=== PATIENT | male | born 1965 | race Caucasian/White ===

== ENCOUNTER 2020-08-31 15:42 | Outpatient (REF) | payer OTHER, SELFPAY | END 2020-08-31 15:43 | disposition home or self-care (01) | LOC: HO.LAB 15:42 | PROVIDERS: Visit Provider Internal Medicine | DX: Z20.828 Contact with and (suspected) exposure to other viral communicable diseases (principal) | CPT/HCPCS: C9803; U0003 ==

== ENCOUNTER 2020-10-15 09:09 | Outpatient (REF) | payer OTHER, SELFPAY | END 2020-10-15 09:10 | disposition home or self-care (01) | LOC: HO.LAB 09:09 | PROVIDERS: Visit Provider Internal Medicine | DX: Z20.822 Contact with and (suspected) exposure to COVID-19 (principal) | CPT/HCPCS: 36415; C9803; U0003 ==

== ENCOUNTER 2020-10-22 09:31 | Outpatient (REF) | payer OTHER, SELFPAY | END 2020-10-22 09:32 | disposition home or self-care (01) | LOC: HO.LAB 09:31 | PROVIDERS: Visit Provider Internal Medicine | DX: Z20.822 Contact with and (suspected) exposure to COVID-19 (principal) | CPT/HCPCS: 36415; C9803; U0003 ==

== ENCOUNTER 2020-11-29 07:41 | Outpatient (REF) | payer OTHER, SELFPAY | END 2020-11-29 07:42 | disposition home or self-care (01) | LOC: HO.LAB 07:41 | PROVIDERS: Visit Provider Internal Medicine | DX: Z20.822 Contact with and (suspected) exposure to COVID-19 (principal) | CPT/HCPCS: 36415; C9803; U0003; U0005 ==

== ENCOUNTER 2021-01-09 07:35 | Outpatient (REF) | payer OTHER, SELFPAY ==
[2021-01-09 10:32] LABS: SARS COV2 PCR INHOUSE NEGATIVE (Negative)
== END 2021-01-09 07:36 | disposition home or self-care (01) ==
LOC: HO.LAB 07:35
PROVIDERS: Visit Provider Internal Medicine
DX: Z20.822 Contact with and (suspected) exposure to COVID-19 (principal)
CPT/HCPCS: C9803; U0003

== ENCOUNTER 2021-02-09 07:36 | Outpatient (REF) | payer OTHER, SELFPAY | END 2021-02-09 07:37 | disposition home or self-care (01) | LOC: HO.LAB 07:36 | PROVIDERS: Visit Provider Internal Medicine | DX: Z20.822 Contact with and (suspected) exposure to COVID-19 (principal) | CPT/HCPCS: C9803; U0003; U0005 ==

== ENCOUNTER → 2021-06-02 07:51 | Outpatient (BNVA) | payer OTHER, SELFPAY | PROVIDERS: Visit Provider Physician Assistant | DX: G56.22 Lesion of ulnar nerve, left upper limb (principal); G56.02 Carpal tunnel syndrome, left upper limb | CPT/HCPCS: 99202 ==

== ENCOUNTER 2021-08-23 08:28 | Outpatient (REF) | payer OTHER, SELFPAY ==
--- NOTE | 2021-08-23 08:31 | EMG_ITS ---
This is a 55-year-old man with a 1-year history of bilateral upper extremity pain, numbness, and tingling. He has no other medical problems. PHYSICAL EXAMINATION: On examination, he is alert and oriented with normal intellectual functions. Cranial nerves II through XII are normal. There is no Tinel or Phalen sign. IMPRESSION: Carpal tunnel syndrome. Nerve conduction EMG study: Early carpal tunnel syndrome bilaterally. Normal EMG of the left C5-T1 innervated muscles. MD CHEMA Jensen/JOSEFINA / [id number]
== END 2021-08-23 08:29 | disposition home or self-care (01) ==
LOC: HO.NEURO 08:28
PROVIDERS: Visit Provider Physician Assistant
DX: G56.02 Carpal tunnel syndrome, left upper limb (principal)
CPT/HCPCS: 95885; 95913

== ENCOUNTER 2021-11-21 08:32 | Outpatient (REF) | payer OTHER, SELFPAY ==
--- NOTE | ~2021-11-21 | XR_ITS ---
EXAMINATION: LEFT SHOULDER, LEFT ELBOW CLINICAL INFORMATION: Pain in left shoulder and left elbow COMPARISON: Left shoulder 03/13/2019, left elbow 04/11/2018 TECHNIQUE: 4 views left shoulder, 3 views left elbow FINDINGS: Left shoulder: No significant bone, joint or soft tissue abnormality is seen. Left elbow: No significant bone, joint or soft tissue abnormality is seen. XR/XR elbow LT 2V IMPRESSION: Normal unchanged radiographs of the left shoulder and left elbow
--- NOTE | ~2021-11-21 | XR_ITS ---
EXAMINATION: LEFT SHOULDER, LEFT ELBOW CLINICAL INFORMATION: Pain in left shoulder and left elbow COMPARISON: Left shoulder 03/13/2019, left elbow 04/11/2018 TECHNIQUE: 4 views left shoulder, 3 views left elbow FINDINGS: Left shoulder: No significant bone, joint or soft tissue abnormality is seen. Left elbow: No significant bone, joint or soft tissue abnormality is seen. XR/XR shoulder LT min 2V IMPRESSION: Normal unchanged radiographs of the left shoulder and left elbow
== END 2021-11-21 08:33 | disposition home or self-care (01) ==
LOC: HO.XRAY 08:32
PROVIDERS: Absent Provider Nurse Practitioner Primary Care; PCP Nurse Practitioner Primary Care; Visit Provider Internal Medicine
DX: M77.02 Medial epicondylitis, left elbow (principal); M25.512 Pain in left shoulder
CPT/HCPCS: 73030; 73070

== ENCOUNTER → 2022-07-18 12:15 | Outpatient (BNVA) | payer OTHER, SELFPAY | PROVIDERS: PCP Nurse Practitioner Primary Care; Visit Provider Orthopaedic Surgery | DX: G56.23 Lesion of ulnar nerve, bilateral upper limbs (principal); G56.03 Carpal tunnel syndrome, bilateral upper limbs | CPT/HCPCS: 99202 ==

== ENCOUNTER 2024-09-23 15:25 | Outpatient (REF) | payer OTHER, SELFPAY ==
[2024-09-23 16:29] LABS: Hematocrit 43.2 % (42.0-52.0); Hemoglobin 14.5 g/dl (14.0-18.0)
[2024-09-23 17:30] LABS: Vitamin B12 544 pg/mL (200-900)
[2024-09-23 17:41] LABS: Alanine Aminotransferase 49 U/L (0-40); Albumin Level 4.5 g/dL (3.5-5.0); Alkaline Phosphatase 83 U/L (39-117); Anion Gap 11 (12-20); Aspartate Amino Transferase 29 U/L (5-37); Bilirubin Total 0.4 mg/dL (0.0-1.0); Blood Urea Nitrogen 15 mg/dL (9-16); Carbon Dioxide 28 mmol/L (22-29); Chloride 108 mmol/L (96-108); Cholesterol 234 mg/dL (<200); Estimated Glomerular Filt Rate > 60; Glucose Random 99 mg/dL (60-115); HDL Cholesterol 38 mg/dL (>40); LDL Cholesterol Calculated 133 mg/dL (<100); Potassium 4.1 mmol/L (3.3-5.1); Sodium 143 mmol/L (135-145); Total Protein 7.8 g/dL (6.5-8.0); Triglycerides 315 mg/dL (<150)
[2024-09-24 04:50] LABS: HIV AB/AG Nonreactive (Nonreactive); HIV Num 1 0.06 S/CO (0.00-0.99); ~HepC Num1 0.09 S/CO (0.00-0.79); ~Hepatitis C Antibody Nonreactive (Nonreactive)
[2024-09-25 12:39] LABS: RPR Rapid Plasma Reagin NON-REACTIVE (NON-REACTIVE)
== END 2024-09-23 15:26 | disposition home or self-care (01) ==
LOC: HO.HHCL 15:25
PROVIDERS: Visit Provider Nurse Practitioner Primary Care
DX: Z00.00 Encounter for general adult medical examination without abnormal findings (principal); Z11.3 Encounter for screening for infections with a predominantly sexual mode of transmission; Z11.4 Encounter for screening for human immunodeficiency virus [HIV]; E78.1 Pure hyperglyceridemia; G56.23 Lesion of ulnar nerve, bilateral upper limbs
CPT/HCPCS: 36415; 80053; 80061; 82607; 85014; 85018; 86592; 86803; 87389

== ENCOUNTER 2025-01-05 09:27 | Outpatient (REF) | payer OTHER, SELFPAY ==
--- NOTE | ~2025-01-05 | XR_ITS ---
EXAMINATION: XR SHOULDER 2 OR MORE VIEWS RIGHT HISTORY: M25.519 - Pain in unspecified shoulder COMPARISON: Alexx is made with the prior examination dated 03/13/2019. FINDINGS: Three views of the right shoulder are submitted. Osseous mineralization is normal. There is no fracture or dislocation. The glenohumeral and acromioclavicular joint spaces are preserved. The soft tissues are unremarkable. XR/XR shoulder RT min 2V IMPRESSION: Unremarkable examination of the right shoulder. Electronically signed by: Adonay Watson MD 01/06/2025 08:59 AM EDT
--- NOTE | ~2025-01-05 | XR_ITS ---
CLINICAL HISTORY: M25.519 - Pain in unspecified shoulder 3 view left shoulder Comparison: None Findings: No acute fracture. No dislocation. Mild degenerative changes of the greater tuberosity. Glenohumeral joint and acromioclavicular joint are intact. No erosions. No radiopaque foreign body. IMPRESSION: 1. No acute findings This document has been electronically signed by: Tina Cabral MD on 01/06/2025 17:14:33
--- OUTSIDE RECORDS SUMMARY | 2025-01-05 11:11 | XMS_ITS | Clinical Summary ---
Author Organization [employer] Address [address] [place] [address] Care Team Providers Care Berry Picker Name Role Phone Maryann Montes Primary Care Provider [phone] Allergies No known active allergies Medications atorvastatin [...] Description 11/10/2024 2:00 PM EST Office Visit [facility] [address] [place] [address] Maryann Montes ANP Low back pain radiating [...] Description 02/09/2025 1:15 PM EDT Office Visit [facility] [address] [place], [place] [phone] Maryann Montes, DANISH [address] [place], [place] [phone] Health Maintenance Due Date Last Done Comments [...] PM EST) Hepatitis C Antibody Nonreactive Nonreactive [facility] Comment:Antibodies to HCV no t detected; does not exclude early acuteHCV infection. Blood Venous blood specimen / Unknown 09/23/2024 3:28 PM EST 09/23/2024 4:24 PM EST [facility] LAB BLOOD ORDERABLES Final Resul t [facility] [address] [place] [phone] * HIV-1/2 Antigen and Antibodies, Fourth Generation, with Reflexes (09/23/2024 3:28 PM EST) HIV AB/AG Nonreactive Nonreactive [facility] Comment:HIV-1 p24 Ag and/or HIV-1/HIV-2 Ab not detected.A test result that is nonreactive does not exclude thepossibility of exposure to or infection with HIV-1 and/orHIV-2. Nonreactive results in this assay for individualswith prior exposure to HIV-1 and/or HIV-2 may be due toantigen and antibody levels that are below the limit ofdetection of this assay.The [employer] HIV Ag/Ab Combo assay result andsupplemental assay results should be interpreted inconjunction with the patient's clinical presentation,history and other laboratory results. If the results areinconsistent with clinical evidence, additional testing issuggested to confirm the result. Blood Venous blood specimen / Unknown 09/23/2024 3:28 PM EST 09/23/2024 4:24 PM EST [facility] LAB BLOOD ORDERABLES Final Resul t [facility] [address] [place] [phone] * (ABNORMAL) Lipid Panel, Standard (09/23/2024 3:28 PM EST) Triglycerides 315(H) <150 mg/dL [facility] Comment:Desirable Triglyceri de: less than 150 mg/dLBorderline High Triglyceride 150-199 mg/dLHigh Triglyceride: 200-499 mg/dLVery High Triglyceride: greater than or equal to 5OO mg/dL Cholesterol 234(H) <200 mg/dL [facility] Comment:Desirable Cholestero l: less than 200 mg/dLBorderline High Cholesterol: 200-239 mg/dLHigh Cholesterol: greater than 239 mg/dL LDL Cholesterol Calculated 133(H) <100 mg/dL [facility] Comment:Desirable LDL: less than 100 mg/dLNear Optimal/Above Optimal LDL: 110- 129 mg/dLBorderline High LDL: 130-159 mg/dLHigh LDL: 160-189 mg/dLVery High LDL: greater than or equal to 190 mg/dL HDL Cholesterol 38(L) >40 mg/dL [facility] Comment:Desirable HDL: great er than 40 mg/dL Note: This HDL assay may give artificially low results in patients with liver disease. Blood Venous blood specimen / Unknown 09/23/2024 3:28 PM EST 09/23/2024 4:24 PM EST Maryann PENG LAB BLOOD ORDERABLES Final Resul t [facility] [address] [place] [phone] from Last 3 Months or Most Recently Relevant to Health Maintenance Insurance [facility] [address] [place] [id number] [place] [address] [phone] [place] [id number] Care Teams Berry Picker Relationship Specialty Start Date End Date Maryann Montes ANP [address] [place] [address] PCP - General Family Medicine 08/23/20
--- OUTSIDE RECORDS SUMMARY | 2025-01-05 11:11 | XMS_ITS | Clinical Summary ---
Author Organization [facility] ity Address [address] [place] [address] Care Team Providers Care Combination Machine Tool Operator Name Role Phone Unavailable Primary Care Provider [...]
== END 2025-01-05 09:28 | disposition home or self-care (01) ==
LOC: HO.HOSX 09:27
PROVIDERS: PCP Nurse Practitioner Primary Care; Visit Provider Orthopaedic Surgery
DX: M25.519 Pain in unspecified shoulder (principal)
CPT/HCPCS: 73030

== ENCOUNTER 2025-01-05 09:27 | Outpatient (AMB) | payer OTHER, SELFPAY ==
--- NOTE | 2025-01-05 09:33 | A.OFFVIS_ITS ---
Vital Signs 01/05/25 10:00 Height 5 ft 8 in Weight 192 lb BMI 29.2 Intake Visit Reasons: OV-B/L ulnar neuropathy LT upper extremity f/u Intake Note: Xavier 59 yr old right hand dominant Gabonese speaking male presents today for a new problem visit for his right shoulder pain. States pain started about 7 years ago and has worsen in the last 4-5 years. Pain increases with lifting, pushing and when sleeping. He is not able to hold on to a item for prolong time before he drops it due to weakness. Reports he has tried P.T and injections in the past with no relief. He also has numbness and tingling and was schedule to see Dr Mclaughlin however states his shoulder is worse. Environmental Services Manager Name: Paola Maya [phone] Allergies No Known Allergies [No Known Allergies*] Allergy (Verified 01/05/25 10:03) HPI HPI OV-B/L ulnar neuropathy LT upper extremity f/u: Details: The patient is a 59-year-old right hand dominant male presenting with pain in both shoulders, neck and numbness and tingling in the hands bilaterally. The pain is described as starting with a cramp and feeling warm before onset and radiates through the entire arm on both sides, with the right side being more severe. Additionally, he reports a buzzing sensation or electrical sensation of bilateral upper extremities. Symptoms have persisted for several years, worsening over the last six to seven years. There is associated neck pain that occurs occasionally, impacted by movement, but no history of injury or trauma reported. He experiences reduced comfort in positioning during sleep due to this pain. Current medications include duloxetine and gabapentin, which provide intermittent relief. [facility] Medical History (Updated 01/05/25 @ 11:29 by Osiris Mendieta PA-C) High cholesterol Surgical History H/O left knee surgery Social History Current occupational status: employed Current occupation: maintenance/rt hand Review of Systems Const All systems reviewed & are unremarkable except as noted in HPI and below Physical Exam Vital Signs: BMI result Body Mass Index 29.2 Const General: cooperative, healthy appearing and no acute distress Orientation/consciousness: patient oriented x3 HEENT Head: Yes normocephalic and Yes atraumatic Eyes EOM: EOMs intact bilaterally Resp Effort & Inspection: normal respiratory effort and able to speak in complete sentences Cardio Jugular venous distension: no JVD Skin General skin exam: turgor normal Rashes: no rashes Neuro General: patient oriented x3 Extrem Other: Right/Left shoulder: Full shoulder ROM in all planes with pain. Negative cross- body reach. Negative empty can. Negative drop arm. Reports numbness and tingling in bilateral hands. Reports a buzzing sensation in bilateral upper extremities from shoulders to hand. Reproduction of pain and symptoms when the patient is extending his neck. Increase in neck pain with range of motion. Psych Appearance: grossly normal Affect: normal affect Attitude: cooperative Assessment & Plan Assessment & Plan (1) Cervical radiculopathy: Code(s): M54.12 - Radiculopathy, cervical region Category: Medical Plan I discussed with the patient the possibility of cervical radiculopathy causing his symptoms, which include bilateral shoulder pain, numbness, and tingling in the hands. I explained that a nerve conduction study would be beneficial for a definitive assessment. I emphasized the importance of continuing his current medications, duloxetine and gabapentin, to manage symptoms. The benefits and r isks of different management and diagnostic options were discussed, highlighting that proactive treatment could potentially prevent deterioration and improve symptoms. The patient was agreeable to these steps and did not have additional questions. The patient will follow-up with Dr. Hector for further evaluation and treatment after EMG is obtained. Of note, the patient did have an EMG study in 2020 which she was diagnosed with carpal tunnel syndrome. X-rays of bilateral shoulders which were obtained while in the office today and were reviewed by me, Osiris Mendieta PA-C, revealed no acute fracture dislocation. Scribed for Carline Mclaughlin MD by Gilmer Avitia, medical unit secretary, on 01/05/25 at [ ] AM, EST. Orders: Orders XR shoulder LT min 2V 01/05/25 M25.519 - Pain in unspecified shoulder XR shoulder RT min 2V 01/05/25 M25.519 - Pain in unspecified shoulder NE electromyogram (EMG) 01/05/25 M54.12 - Radiculopathy, cervical region Coding Level of Care Code New Pt Level 3 (12729) Diagnoses Cervical radiculopathy M54.12
[2025-01-05 10:00] VITALS: BMI 29.2
--- OUTSIDE RECORDS SUMMARY | 2025-01-05 10:40 | XMS_ITS | Clinical Summary ---
Author Organization [employer] Address [address] [place] [address] Care Team Providers Care Strategic Planning Manager Name Role Phone Maryann Montes Primary Care Provider [phone] Allergies No known active allergies Medications atorvastatin (Lipitor) 20 MG tabletIndication s:Dyslipidemia Take 1 tablet (20 mg) by mouth Once per day. 90 tablet 3 4 Active DULoxetine (Cymbalta) [address] capsuleIndicatio ns:Ulnar neuropathy of both upper extremities Take 1 capsule twice daily with meal. Do not crush or chew. 180 capsule 1 5 Active lidocaine (Lidoderm) 5 % patchIndications :Low back pain radiating to right leg Apply 1 patch topically Once per day. Remove & discard patch within 12 hours or as directed by MD. 30 patch 2 5 Active Active Problems Problem Noted Date Diagnosed Date Low back pain radiating to right leg 11/10/2024 Ulnar neuropathy of both upper extremities 11/10 Overview (11/10/2024): Tolerating duloxetine well. Increased dose to 30 mg twice daily. Encounters Date Type Department Care Team Description 11/10/2024 2:00 PM EST Office Visit [facility] [address] [place] [address] Maryann Montes ANP Low back pain radiating to right leg (Primary Dx); Ulnar neuropathy of both upper extremities 11/10/2024 Travel from Last 3 Months Immunizations Name Administration Dates Next Due Influenza injectable quadrivalent preservative f ree 09/28/2015 Influenza, seasonal, injectable, preservative fr ee 09/23/2024 Td (adult), 5 Lf tetanus tox oid, preservative free, adsorbed 07/08/2013 Tdap 09/23/2024 Social History Tobacco Use Types Packs/Day Years Used Date Smoking Tobacco: Never Smokeless Tobacco: Never Tobacco Cessation:Counseling Given: Not Answered Depression Answer Date Recorded Patient Health Questionnaire-9 Score 0 09/23/2024 Patient Health Questionnaire-9 Score 0 09/23/2024 Last PHQ-9: Questionnaire Data Not on file 1 11/24/2023 Housing Stability Answer Date Recorded What is your housing situation today? I have kane mojica 09/11/[address] you li ve. Do you have problems with any of the following? None of the above 09/11/2024 Food Insecurity Answer Date Recorded Within the past 12 months, y ou worried that your food would run out before you got money to buy more: Sometimes True 2023 Within the past 12 months,th e food you bought just didn't last and you didn't have enough money to get more: Sometimes True 09/11/2024 Transportation Answer Date Recorded In the past 12 months, has l ack of transportation kept you from medical appts, meetings, work or from getting things needed for daily living? No 09/11/2024 Utilities Answer Date Recorded In the past 12 months, has t he electric, gas, oil or water company threatened to shut off services in your home? No 09/11/2024 Depression Answer Date Recorded Patient Health Questionnaire-2 Score 0 09/23/2024 Internet Access Answer Date Recorded Internet Access Q1 Yes 09/11/2024 Internet Access Q2 Not on file 09/11/2024 Sex and Gender Information Value Date Recorded Sex Assigned at Male 08/06/2022 10:16 AM EDT Legal Sex Male 10:16 AM EDT Gender Identity Male 08/06/2022 10:16 AM EDT Sexual Orientation Choose not to disclose 2021 10:16 AM EDT Last Filed Vital Signs Vital Sign Reading Time Taken Comments Blood Pressure 128/87 11/10/2024 2:25 PM EST Pulse 79 11/10/2024 2:25 PM EST Temperature 36.8 ??C (98.2 ??F) 11/10/2024 2:25 PM ES T Respiratory Rate 14 11/10/2024 2:25 PM EST Oxygen Saturation 98% 11/10/2024 2:25 PM EST Inhaled Oxygen Concentration - - Weight 88.2 kg (194 lb 6.4 oz) 11/10/2024 2:25 P M EST Height 172.7 cm (5' 8 ) 04/30/2022 12:07 AM EDT Body Mass Index 29.56 04/30/2022 12:07 AM EDT Plan of Treatment Upcoming Encounters Date Type Department Care Team (Late st Contact Info) Description 02/09/2025 1:15 PM EDT Office Visit [facility] [address], [place] [phone] Maryann Montes, DANISH [address] [place], [place] [phone] Health Maintenance Due Date Last Done Comments CT Colonography 1967 Colonoscopy 1967 Colorectal Cancer Screening 1967 FIT DNA/Cologuard 1967 FIT 1967 FOBT 1967 Sigmoidoscopy 1967 Alcohol/Substance Use Screening 1979 Hepatitis B Vaccines (1 of 3 - 19+ 3-dose series) 1986 Pneumococcal Vaccine: 50+ Years (1 of 1 - PCV) 2017 Zoster Vaccines (1 of 2) 2017 COVID-19 Vaccine (3 - 2023-2 5 season) 2024 11/21/2021, 01/14/2021 SDOH Screening 09/11/2025 09/11/2024 Depression Screening 09/23/2025 09/23/2024, 09/23/2024 Tobacco Screening 11/10/2025 11/10/2024 Lipid Panel 09/23/2029 09/23/2024, 04/17/2021 DTaP/Tdap/Td Vaccines (2 - T d or Tdap) 09/23/2034 09/23/2024, 07/08/2013 RSV Patients and Patients Aged 60 years or older (1 - 1-dose 75+ series) 2042 HIV Screening Completed 09/23/2024 Hepatitis C Screening Completed 09/23/2024 Influenza Vaccine Completed 09/23/2024, 09/28/2015 HIB Vaccines Aged Out No longer eligi ble based on patient's age to complete this topic HPV Vaccines Aged Out No longer eligi ble based on patient's age to complete this topic Hepatitis A Vaccines Aged Out No long er eligible based on patient's age to complete this topic IPV Vaccines Aged Out No longer eligi ble based on patient's age to complete this topic Meningococcal Vaccine Aged Out No saranya allen eligible based on patient's age to complete this topic RSV under 20 months Aged Out No longe r eligible based on patient's age to complete this topic Rotavirus Vaccines Aged Out No longer eligible based on patient's age to complete this topic Procedures Procedure Name Priority Date/Time Associated Diagnosis Comments HEPATITIS C AB W/REFL TO HCV RNA, QN, PCR Routine 09/23/2024 3:28 PM EST Routine screening for STI (sexually transmitted infection) HIV 1/2 ANTIGEN/ANTIBODY, FOURTH GENERATION W/RFL Routine 09/23/2024 3:28 PM EST Routine screening for STI (sexually transmitted infection) LIPID PANEL, STANDARD Routine 09/23/2024 3:28 PM EST Hypertriglyceridemia from Last 3 Months or Most Recently Relevant to Health Maintenance Results * Hepatitis C Antibody with Reflex to HCV, RNA, Quantitative, Real-Time PCR (09/23/2024 3:28 PM EST) Hepatitis C Antibody Nonreactive Nonreactive [facility] Comment:Antibodies to HCV no t detected; does not exclude early acuteHCV infection. Blood Venous blood specimen / Unknown 09/23/2024 3:28 PM EST 09/23/2024 4:24 PM EST [facility] LAB BLOOD ORDERABLES Final Resul t [facility] [address] [place] [phone] * HIV-1/2 Antigen and Antibodies, Fourth Generation, with Reflexes (09/23/2024 3:28 PM EST) HIV AB/AG Nonreactive Nonreactive [facility] Comment:HIV-1 p24 Ag and/or HIV-1/HIV-2 Ab not detected.A test result that is nonreactive does not exclude thepossibility of exposure to or infection with HIV-1 and/orHIV-2. Nonreactive results in this assay for individualswith prior exposure to HIV-1 and/or HIV-2 may be due toantigen and antibody levels that are below the limit ofdetection of this assay.The [employer] HIV Ag/Ab Combo assay result andsupplemental assay results should be interpreted inconjunction with the patient's clinical presentation,history and other laboratory results. If the results areinconsistent with clinical evidence, additional testing issuggested to confirm the result. Blood Venous blood specimen / Unknown 09/23/2024 3:28 PM EST 09/23/2024 4:24 PM EST [facility] LAB BLOOD ORDERABLES Final Resul t [facility] [address] [place] [phone] * (ABNORMAL) Lipid Panel, Standard (09/23/2024 3:28 PM EST) Triglycerides 315(H) <150 mg/dL [facility] Comment:Desirable Triglyceri de: less than 150 mg/dLBorderline High Triglyceride 150-199 mg/dLHigh Triglyceride: 200-499 mg/dLVery High Triglyceride: greater than or equal to 5OO mg/dL Cholesterol 234(H) <200 mg/dL [facility] Comment:Desirable Cholestero l: less than 200 mg/dLBorderline High Cholesterol: 200-239 mg/dLHigh Cholesterol: greater than 239 mg/dL LDL Cholesterol Calculated 133(H) <100 mg/dL [facility] Comment:Desirable LDL: less than 100 mg/dLNear Optimal/Above Optimal LDL: 110- 129 mg/dLBorderline High LDL: 130-159 mg/dLHigh LDL: 160-189 mg/dLVery High LDL: greater than or equal to 190 mg/dL HDL Cholesterol 38(L) >40 mg/dL [facility] Comment:Desirable HDL: great er than 40 mg/dL Note: This HDL assay may give artificially low results in patients with liver disease. Blood Venous blood specimen / Unknown 09/23/2024 3:28 PM EST 09/23/2024 4:24 PM EST Maryann PENG LAB BLOOD ORDERABLES Final Resul t [facility] [address] [place] [phone] from Last 3 Months or Most Recently Relevant to Health Maintenance Insurance [facility] [address] [place] [id number] [place] [id number] [place] [id number] Care Teams Strategic Planning Manager Relationship Specialty Start Date End Date Maryann Montes ANP [address] [place] [address] PCP - General Family Medicine 08/23/20
--- OUTSIDE RECORDS SUMMARY | 2025-01-05 10:40 | XMS_ITS | Clinical Summary ---
Author Organization [facility] ity Address [address] [place] [address] Care Team Providers Care Supervisor Winter Name Role Phone Unavailable Primary Care Provider Unavailabl e Social History Tobacco Use Types Packs/Day Years Used Date Smoking Tobacco: Never Assessed Sex and Gender Information Value Date Recorded Sex Assigned at Not on file Legal Sex Male 9:05 PM EST Gender Identity Not on file Sexual Orientation Not on file Plan of Treatment Health Maintenance Due Date Last Done Comments DTaP,Tdap,and Td Vaccines (1 - Tdap) 1986 Hepatitis B Vaccines (1 of 3 - 19+ 3-dose series) 1986 Pneumococcal Vaccine: 50+ Ye ars (1 of 1 - PCV) 2017 Zoster Vaccines (1 of 2) 2017 Cholesterol Screening (Lipid Panel) 11/01/2023 Colorectal Cancer Screening: Colonoscopy 11/01/2023 Depression Screening 11/01/2023 HIV Screening 11/01/2023 Hepatitis C Screening 11/01/2023 Social Influencers of Health Screening 11/01/2023 COVID-19 Vaccine (2023-2 5 season) 2024 Influenza Vaccine (Season Ended) 2025 HIB Vaccines Aged Out No longer eligi [...] on patient's age to complete this topic MMR Vaccines Aged Out No longer eligi ble based on patient's age to complete this topic Meningococcal ACWY Vaccine Aged Out N o longer eligible based on patient's age to complete this topic Meningococcal B Vacine Aged Out No lo nger eligible based on patient's age to complete this topic Pneumococcal Vaccine: Pediat rics (0 to 5 Years) and At-Risk Patients (6 to 64 Years) Aged Out No longer eligible b ased on patient's age to complete this topic RSV Immunization Patients Un len 20 months Aged Out No longer eligible b ased on patient's age to complete this topic Varicella Vaccines Aged Out No longer eligible based on patient's age to complete this topic
== END 2025-01-05 10:22 | disposition home or self-care (01) ==
PROVIDERS: PCP Nurse Practitioner Primary Care; Visit Provider Physician Assistant
DX: M54.12 Radiculopathy, cervical region (principal)
CPT/HCPCS: 99203

== ENCOUNTER → 2025-01-05 09:51 | Outpatient (BNV) | payer OTHER, SELFPAY | PROVIDERS: PCP Nurse Practitioner Primary Care; Visit Provider Radiology Diagnostic Radiology | DX: M25.511 Pain in right shoulder (principal); M25.512 Pain in left shoulder | CPT/HCPCS: 73030 ==

== ENCOUNTER 2025-03-16 08:05 | Outpatient (REF) | payer OTHER, SELFPAY ==
--- NOTE | 2025-03-16 08:12 | EMG_ITS ---
FINDINGS: Bilateral median and ulnar motor and sensory studies were performed. Bilateral radial sensory studies and medial and lateral antecubital brachial sensory studies were performed. Paraspinal muscles were tested with a needle. IMPRESSION: 1. Mild bilateral median neuropathy across carpal tunnel. 2. Mild bilateral ulnar neuropathy across cubital tunnel with no evidence of proximal lesion. MD GARRIKC Jung/JOSEFINA / [id number]
--- OUTSIDE RECORDS SUMMARY | 2025-03-16 08:12 | XMS_ITS | Clinical Summary ---
Author Organization [employer] Address [address] [facility] [address] [place] [address] Care Team Providers Care Fruit Tester Name Role Phone Daniela Krishnan Primary Care Provider [phone] Allergies No known active allergies Medications * This document contains information received from the source organization and may not represent a complete record from that organization. atorvastatin (Lipitor) 20 MG tabletIndication s:Dyslipidemia Take [...] by MD. 30 patch 2 5 Active gabapentin (Neurontin) 300 MG capsule Take 1 capsule by mouth 2 times daily. 5 Active Active Problems Problem Noted Date Diagnosed Date Low back pain radiating to right leg 11/10/2024 Ulnar neuropathy of both upper extremities 11/10 Overview (11/10/2024): Tolerating duloxetine well. Increased dose to 30 mg twice daily. Encounters * This document contains information received from the source organization and may not represent a complete record from that organization. Date Type Department Care Team Description 02/09/2025 1:15 PM EDT Office Visit [facility] [address] [place] [address] [phone] Daniela Krishnan ANP Low back pain radiating to right leg (Primary Dx); Anxiety; Bilateral foot pain; Screening for malignant neoplasm of colon; Ulnar neuropathy of both upper extremities 02/09/2025 Travel 02/05/2025 Telephone [facility] [address] [place] [address] Daniela Krishnan ANP chart prep 01/05/2025 Orders Only [facility] External Provider, [facility] from Last 3 Months Immunizations Immunization Administration Dates Next Due Influenza injectable quadrivalent [...] Sign Reading Time Taken Comments Blood Pressure 124/80 02/09/2025 1:10 PM EDT Pulse 80 02/09/2025 1:10 PM EDT Temperature 36.8 ??C (98.2 ??F) 11/10/2024 2:25 PM ES T Respiratory Rate 20 02/09/2025 1:10 PM EDT Oxygen Saturation 98% 11/10/2024 2:25 PM EST Inhaled Oxygen Concentration - - Weight 90.7 kg (200 lb) 02/09/2025 1:10 PM EDT Height 172.7 cm (5' 8 ) 02/09/2025 1:10 PM EDT Body Mass Index 30.41 02/09/2025 1:10 PM EDT Plan of Treatment Health Maintenance Due Date Last Done Comments CT Colonography 1967 Colonoscopy 1967 Colorectal Cancer Screening 1967 FIT DNA/Cologuard 1967 FIT 1967 FOBT 1967 Sigmoidoscopy 1967 Hepatitis B Vaccines (1 of 3 - 19+ 3-dose series) 1986 Pneumococcal Vaccine: 50+ Years (1 of 1 - PCV) 2017 Zoster Vaccines (1 of 2) 2017 COVID-19 Vaccine ( - 2023-2 5 season) 2024 11/21/2021, 01/14/2021 SDOH Screening 09/11/2025 09/11/2024 Depression Screening 09/23/2025 09/23/2024, 09/23/2024 Alcohol/Substance Use Screening 02/09/2026 02/09/2025 Disability Screening 02/09/2026 02/09/2025 Tobacco Screening 02/09/2026 02/09/2025 Lipid Panel 09/23/2029 09/23/2024, 04/17/2021 DTaP/Tdap/Td Vaccines [...] age to complete this topic Meningococcal B Vaccine Aged Out No l onger eligible based on patient's age to complete [...] Procedure Name Priority Date/Time Associated Diagnosis Comments XR SHOULDER 2+ VIEWS LEFT Routine 01/06/2025 5:14 PM EDT XR SHOULDER 2+ VIEWS RIGHT Routine 01/05/2025 9:51 AM EDT HEPATITIS C AB W/REFL TO HCV RNA, QN, PCR Routine 09/23/2024 3:28 PM EST Routine screening for STI (sexually transmitted infection) HIV 1/2 ANTIGEN/ANTIBODY, FOURTH GENERATION W/RFL Routine 09/23/2024 3:28 PM EST Routine screening for STI (sexually transmitted infection) LIPID PANEL, STANDARD Routine 09/23/2024 3:28 PM EST Hypertriglyceridemia from Last 3 Months or Most Recently Relevant to Health Maintenance Results * XR Shoulder 2+ Views Left (01/06/2025 5:14 PM EDT) Anatomical Region Laterality Modality Upper Extremities, Shoulder Left Radi ographic Imaging 01/06/2025 5:14 PM EDT Narrative 01/06/2025 5:16 PM EDT ? [facility] ? [address] ?[place] [address] ?XRay Report ? Signed ? Patient: Morillo,Xavier ?MR#: [id number] ? : 1965 ?Acct:[id number] ? Age/Sex: 59 / M ?ADM Date: 01/05/25 ? Loc: HO.HOSX ? Attending Dr: Carline Mclaughlin MD ? Ordering Physician: Osiris Mendieta PA-C ?? Date of Service: 01/05/25 ?? Procedure(s): XR shoulder LT min 2V ?? Accession Number(s): [id number] ? cc: Osiris Mendieta PA-C; DANIELA KRISHNAN NP ? CLINICAL HISTORY: M25.519 - Pain in unspecified shoulder ? 3 view left shoulder ? Comparison: None ? Findings: ?? No acute fracture. No dislocation. ?? Mild degenerative changes of the greater tuberosity. ?? Glenohumeral joint and acromioclavicular joint are intact. ?? No erosions. No radiopaque foreign body. ? IMPRESSION: ?? 1. No acute findings ? This document has been electronically signed by: Tina Cabral MD on ?? 01/06/2025 17:14:33 ? Dictated By: ?Tina Cabral MD ? Signed By: ?<Electronically signed by Tina Cabral MD in OV> ? 01/06/251714 ? DD/ 13 ? TD/TT: 01/06/251713 ? Electric Meter Installer Helper: ? Procedure Note Lilo Floyd - 01/06/2025 [facility] [address] [place] [address] [address] [place] [address] XRay Report Signed Patient: Gabriela Morillo#: [id number] : 1965Acct:[id number] Age/Sex: 59 / MADM Date: 01/05/25 Loc: ALEX Attending Dr: Carline Mclaughlin MD Ordering Physician: Osiris Mendieta PA-C Date of Service: 01/05/25 Procedure(s): XR shoulder LT min 2V Accession Number(s): [id number] cc: Osiris MendietaC; DANIELA KRISHNAN NP CLINICAL HISTORY: M25.519 - Pain in unspecified shoulder 3 view left shoulder Comparison: None Findings: No acute fracture. No dislocation. Mild degenerative changes of the greater tuberosity. Glenohumeral joint and acromioclavicular joint are intact. No erosions. No radiopaque foreign body. IMPRESSION: 1. No acute findings This document has been electronically signed by: Tina Cabral MD on 01/06/2025 17:14:33 Dictated By: Tina Cabral MD Signed By: <Electronically signed by Tina Cabral MD in OV> 01/06/251714 DD/ 13 TD/TT: 01/06/251713 Electric Meter Installer Helper: [facility] External Provider IMG XR PROCEDURES Final Result * XR Shoulder 2+ Views Right (01/05/2025 9:51 AM EDT) Anatomical Region Laterality Modality Upper Extremities, Shoulder Right Radi ographic Imaging 01/05/2025 9:51 AM EDT Narrative 01/06/2025 9:01 AM EDT ? [facility] ? [address] ?[place] [address] ?XRay Report ? Signed ? Patient: Xavier Morillo ?MR#: [id number] ? : 1965 ?Acct:[id number] ? Age/Sex: 59 / M ?ADM Date: 01/05/25 ? Loc: HO.HOSX ? Attending Dr: Carline Mclaughlin MD ? Ordering Physician: Osiris Mendieta PA-C ?? Date of Service: 01/05/25 ?? Procedure(s): XR shoulder RT min 2V ?? Accession Number(s): [id number] ? cc: Osiris MendietaC; DANIELA KRISHNAN NP ? EXAMINATION: ??XR SHOULDER 2 OR MORE VIEWS RIGHT ? HISTORY: M25.519 - Pain in unspecified shoulder ? COMPARISON: Alexx is made with the prior examination dated 03/13/2019. ? FINDINGS: ? Three views of the right shoulder are submitted. ??Osseous ?? mineralization is normal. ??There is no fracture or dislocation. ??The ?? glenohumeral and acromioclavicular joint spaces are preserved. ??The ?? soft tissues are unremarkable. ? XR/XR shoulder RT min 2V ?? IMPRESSION: ? Unremarkable examination of the right shoulder. ? Electronically signed by: ??Adonay Watson MD ??01/06/2025 08:59 AM EDT ?? RP ? Dictated By: ?Adonay Watson MD ? Signed By: ?<Electronically signed by Adonay Watson MD in OV> ?01/06/25 0859 ? DD/ 0951 ? TD/TT: 01/05/25 0959 ? Electric Meter Installer Helper: ? Procedure Note Lilo Floyd - 01/06/2025 [facility] [address] [place] [address] [address] [place] [address] XRay Report Signed Patient: Gabriela Morillo#: [id number] : 1965Acct:[id number] Age/Sex: 59 / MADM Date: 01/05/25 Loc: JONABRANDYN Attending Dr: Carline Mclaughlin MD Ordering Physician: Osiris Mendieta PA-C Date of Service: 01/05/25 Procedure(s): XR shoulder RT min 2V Accession Number(s): [id number] cc: Osiris Mendieta PA-C; DANIELA KRISHNAN NP EXAMINATION: XR SHOULDER 2 OR MORE VIEWS RIGHT HISTORY: M25.519 - Pain in unspecified shoulder COMPARISON: Alexx is made with the prior examination dated 03/13/2019. FINDINGS: Three views of the right shoulder are submitted. Osseous mineralization is normal. There is no fracture or dislocation. The glenohumeral and acromioclavicular joint spaces are preserved. The soft tissues are unremarkable. XR/XR shoulder RT min 2V IMPRESSION: Unremarkable examination of the right shoulder. Electronically signed by: Adonay Watson MD 01/06/2025 08:59 AM EDT Dictated By: Adonay Waston MD Signed By: <Electronically signed by Adonay Watson MD in OV> 01/06/2559 DD/ 0951 TD/TT: 01/05/25 0959 Electric Meter Installer Helper: Result [facility] External Provider IMG XR PROCEDURES Edited Result - Final * Hepatitis C Antibody with Reflex to HCV, RNA, Quantitative, Real-Time PCR (09/23/2024 3:28 PM EST) Hepatitis C Antibody Nonreactive Nonreactive [facility] Comment:Antibodies to HCV no t detected; does not exclude early acuteHCV infection. Blood Venous blood specimen / Unknown 09/23/2024 3:28 PM EST 09/23/2024 4:24 PM EST Result [facility] Daniela Krishnan [facility] LAB BLOOD ORDERABLES Final Resul t [facility] [address] [place] [phone] * HIV-1/2 Antigen and Antibodies, Fourth Generation, with Reflexes (09/23/2024 3:28 PM EST) HIV AB/AG Nonreactive Nonreactive [facility] Comment:HIV-1 p24 Ag and/or HIV-1/HIV-2 Ab not detected.A test result that is nonreactive does not exclude thepossibility of exposure to or infection with HIV-1 and/orHIV-2. Nonreactive results in this assay for individualswith prior exposure to HIV-1 and/or HIV-2 may be due toantigen and antibody levels that are below the limit ofdetection of this assay.The [employer] HIV Ag/Ab Combo assay result andsupplemental assay results should be interpreted inconjunction with the patient's clinical presentation,history and other laboratory results. If the results areinconsistent with clinical evidence, additional testing issuggested to confirm the result. Blood Venous blood specimen / Unknown 09/23/2024 3:28 PM EST 09/23/2024 4:24 PM EST Result [facility] Daniela Krishnan [facility] LAB BLOOD ORDERABLES Final Resul t Performing Organization Address City/[facility] Co de Phone Number [facility] [address] [place] [address] [phone] * (ABNORMAL) Lipid Panel, Standard (09/23/2024 3:28 PM EST) Triglycerides 315(H) <150 mg/dL [facility] Comment:Desirable Triglyceri de: less than 150 mg/dLBorderline High Triglyceride 150-199 mg/dLHigh Triglyceride: 200-499 mg/dLVery High Triglyceride: greater than or equal to 5OO mg/dL Cholesterol 234(H) <200 mg/dL [facility] Comment:Desirable Cholestero l: less than 200 mg/dLBorderline High Cholesterol: 200-239 mg/dLHigh Cholesterol: greater than 239 mg/dL LDL Cholesterol Calculated 133(H) <100 mg/dL [facility] Comment:Desirable LDL: less than 100 mg/dLNear Optimal/Above Optimal LDL: 110- 129 mg/dLBorderline High LDL: 130-159 mg/dLHigh LDL: 160-189 mg/dLVery High LDL: greater than or equal to 190 mg/dL HDL Cholesterol 38(L) >40 mg/dL [facility] Comment:Desirable HDL: great er than 40 mg/dL Note: This HDL assay may give artificially low results in patients with liver disease. Blood Venous blood specimen / Unknown 09/23/2024 3:28 PM EST 09/23/2024 4:24 PM EST [facility] LAB BLOOD ORDERABLES Final Resul t Performing Organization Address [place]/[facility] Co de Phone Number [facility] [address] [place] [address] [phone] from Last 3 Months or Most Recently Relevant to Health Maintenance Insurance [facility] Care Teams Fruit Tester Relationship Specialty Start Date End Date Daniela Krishnan ANP [address] [place] [phone] PCP - General Family Medicine 08/23/20
== END 2025-03-16 08:06 | disposition home or self-care (01) ==
LOC: HO.NEURO 08:05
PROVIDERS: Visit Provider Physician Assistant
DX: M54.12 Radiculopathy, cervical region (principal); R20.0 Anesthesia of skin; R20.2 Paresthesia of skin
CPT/HCPCS: 95886; 95913

== ENCOUNTER 2025-05-11 09:16 | Outpatient (AMB) | payer OTHER, SELFPAY ==
[2025-05-11 09:17] VITALS: BMI 29.2
--- NOTE | 2025-05-11 09:17 | A.OFFVIS_ITS ---
Vital Signs 05/11/25 09:17 Height 5 ft 8 in Weight 192 lb BMI 29.2 Intake Visit Reasons: OV - B/L hand EMG review Intake Note: Xavier is a 59 year old right hand dominant male who presents today for an EMG review. Patient complains of worsening. Patient reports he is doing well with no further concerns at this time. IMPRESSION 03/16/25: 1. Mild bilateral median and ulnar neuropathy across carpal tunnel. Automotive Electrical Helper Required: Yes Automotive Electrical Helper Language: Clicker Operator Name: JOYCELYN SosaCATA Allergies No Known Allergies (No Known Allergies*) Allergy (Verified 05/11/25 09:19) HPI HPI OV - B/L hand EMG review: Details: Xavier is a 59 year old right hand dominant male who presents today for an EMG review. Patient complains of worsening numbness, tingling, pain in bilateral upper extremities, however the patient states that his primary concern is the pain he experiences radiating from his neck into his shoulders. Patient has been previously evaluated for cervical radiculopathy.. Patient reports he is doing well with no further concerns at this time. IMPRESSION 03/16/25: 1. Mild bilateral median and ulnar neuropathy across carpal tunnel and cubital tunnel [facility] Medical History (Updated 01/05/25 @ 11:29 by Osiris Mendieta PA-C) High cholesterol Surgical History H/O left knee surgery Social History Current occupational status: employed Current occupation: maintenance/rt hand Review of Systems Const All systems reviewed & are unremarkable except as noted in HPI and below Physical Exam Vital Signs: BMI result Body Mass Index 29.2 Extrem Other: Neuro: Normal sensation of the tips of all digits of bilateral hands in the office today No thenar or intrinsic wasting. Good APB muscle firing and good finger cross. Vascular: Capillary refill brisk. ROM: Patient can make a fist and extend all their digits. Skin: No lacerations or abrasions noted. General: No ecchymosis. No erythema or evidence of infection. Assessment & Plan Assessment & Plan (1) Cervical radiculopathy: Code(s): M54.12 - Radiculopathy, cervical region Category: Medical (2) Cubital tunnel syndrome on left: Code(s): G56.22 - Lesion of ulnar nerve, left upper limb Category: Medical (3) Carpal tunnel syndrome, left: Code(s): G56.02 - Carpal tunnel syndrome, left upper limb Category: Medical (4) Carpal tunnel syndrome of right wrist: Code(s): G56.01 - Carpal tunnel syndrome, right upper limb Category: Medical (5) Cubital tunnel syndrome on right: Code(s): G56.21 - Lesion of ulnar nerve, right upper limb Category: Medical Plan 1. Bilateral carpal tunnel syndrome 2. Bilateral cubital tunnel syndrome Symptoms intermittent, daily, worse at night Patient is educated about this condition Patient is educated about the typical treatment course At this time, patient is informed that the recommendation is surgical intervention for both carpal and cubital tunnel syndromes However, the patient states that he finds that the pain he has in his neck and shoulders is significantly more bothersome than the pain in his elbows, wrists, and hands Patient would like to be evaluated and treated for his cervical radiculopathy before any treatment for carpal or cubital tunnel syndromes Patient is referred to Dr. Hector for next available visit for cervical radiculopathy Patient is amenable to this plan Follow-up as needed Coding Level of Care Code Est Pt Level 3 (18296) Diagnoses Cervical radiculopathy M54.12 Cubital tunnel syndrome on left G56.22 Carpal tunnel syndrome, left G56.02 Carpal tunnel syndrome of right wrist G56.01 Cubital tunnel syndrome on right G56.21
--- OUTSIDE RECORDS SUMMARY | 2025-05-11 09:36 | XMS_ITS | Clinical Summary ---
Author Organization [facility] ity Address [address] [place] [address] Care Team Providers Care Metalworker Name Role Phone Unavailable Primary Care Provider [...] Panel) 11/01/2023 Colorectal Cancer Screening: Colonoscopy 11/01/2023 HIV Screening 11/01/2023 Hepatitis C Screening 11/01/2023 Social Influencers of Health Screening 11/01/2023 COVID-19 Vaccine (1 - 2023-2 5 season) 2024 Depression Screening 10/07/2024 Influenza Vaccine (#1) 2025 HIB Vaccines Aged Out No longer [...]
--- OUTSIDE RECORDS SUMMARY | 2025-05-11 09:36 | XMS_ITS | Clinical Summary ---
Author Organization [employer] Address [address] [facility] [address] [place] [address] Care Team Providers Care Furniture Removalist Name Role Phone Jyoti Maryann PENG Primary Care Provider [phone] Allergies No known active allergies Medications * This document contains information received from the source organization and may not represent a complete record from that organization. atorvastatin (Lipitor) 20 MG tabletIndicatio ns:Dyslipidemia Take 1 tablet (20 mg) by mouth Once per day. 90 tablet 3 09/24/20 24 Active lidocaine (Lidoderm) 5 % patchIndication s:Low back pain radiating to right leg Apply 1 patch topically Once per day. Remove & discard patch within 12 hours or as directed by MD. 30 patch 2 11/10/19 25 Active gabapentin (Neurontin) 300 MG capsule Take 1 capsule by mouth 2 times daily. 02/02/20 25 Active DULoxetine (Cymbalta) [address] capsuleIndicati ons:Ulnar neuropathy of both upper extremities TAKE 1 CAPSULE TWICE DAILY WITH MEAL. DO NOT CRUSH OR CHEW. 180 capsule 1 05/06/20 25 Active DULoxetine (Cymbalta) [address] capsuleIndicati ons:Ulnar neuropathy of both upper extremities Take 1 capsule twice daily with meal. Do not crush or chew. 180 capsule 1 11/10/19 25 025 Discontinued Active Problems Problem Noted Date Diagnosed Date Low back pain radiating to right leg 11/10/2024 Ulnar neuropathy of both upper extremities 11/10 Overview (11/10/2024): Tolerating duloxetine well. Increased dose to 30 mg twice daily. Encounters * This document contains information received from the source organization and may not represent a complete record from that organization. Date Type Department Care Team Description 05/06/2025 Refill [facility] [address] [place] [address] Maryann Montes ANP Ulnar neuropathy of both upper extremities 02/09/2025 1:15 PM EDT Office Visit [facility] [address] [facility] [place] [address] Maryann Montes ANP Low back pain radiating to right leg (Primary Dx); Anxiety; Bilateral foot pain; Screening for malignant neoplasm of colon; Ulnar neuropathy of both upper extremities 02/09/2025 Travel from Last 3 Months Immunizations Immunization Administration [...] 80 02/09/2025 1:10 PM EDT Temperature 36.8 C (98.2 F) 11/10/2024 2:25 PM EST Respiratory Rate 20 02/09/2025 1:10 PM EDT [...] - 2023-2 5 season) 2024 11/21/2021, 01/14/2021 Influenza Vaccine (#1) 2025 , 09/28/2015 SDOH Screening 09/11/2025 09/11/2024 Depression Screening 09/23/2025 09/23/2024, 09/23/2024 Alcohol/Substance Use Screening 02/09/2026 02/09/2025 Disability Screening 02/09/2026 02/09/2025 Tobacco Screening 02/09/2026 02/09/2025 Lipid Panel 09/23/2029 09/23/2024, 04/17/2021 DTaP/Tdap/Td Vaccines (2 - T d or Tdap) 09/23/2034 09/23/2024, 07/08/2013 RSV Patients and Patients Aged 60 years or older (1 - 1-dose 75+ series) 2042 HIV Screening Completed 09/23/2024 Hepatitis C Screening Completed 09/23/2024 HIB Vaccines Aged Out No longer eligi [...] PM EST) Hepatitis C Antibody Nonreactive Nonreactive [facility] Comment:Antibodies to HCV no t detected; does not exclude early acuteHCV infection. Blood Venous blood specimen / Unknown 09/23/2024 3:28 PM EST 09/23/2024 4:24 PM EST Maryann Montes [facility] LAB BLOOD ORDERABLES Final Resul t Performing Organization Address [facility] Co de Phone Number [facility] [address] [place] [address] [phone] * HIV-1/2 Antigen and Antibodies, Fourth Generation, with Reflexes (09/23/2024 3:28 PM EST) HIV AB/AG Nonreactive Nonreactive [facility] Comment:HIV-1 p24 Ag and/or HIV-1/HIV-2 Ab not detected.A test result that is nonreactive does not exclude thepossibility of exposure to or infection with HIV-1 and/orHIV-2. Nonreactive results in this assay for individualswith prior exposure to HIV-1 and/or HIV-2 may be due toantigen and antibody levels that are below the limit ofdetection of this assay.The [employer] HIV Ag/Ab Combo assay result andsupplemental assay results should be interpreted inconjunction with the patient's clinical presentation,history and other laboratory results. If the results areinconsistent with clinical evidence, additional testing issuggested to confirm the result. Blood Venous blood specimen / Unknown 09/23/2024 3:28 PM EST 09/23/2024 4:24 PM EST Maryann Montes [facility] BLOOD ORDERABLES Final Resul t Performing Organization Address City/[facility]/ZIP Co de Phone Number [facility] [address] [place] [address] [phone] * (ABNORMAL) Lipid Panel, Standard (09/23/2024 3:28 PM EST) Triglycerides 315(H) <150 mg/dL [facility] Comment:Desirable Triglyceri de: less than 150 mg/dLBorderline High Triglyceride 150-199 mg/dLHigh Triglyceride: 200-499 mg/dLVery High Triglyceride: greater than or equal to 5OO mg/dL Cholesterol 234(H) <200 mg/dL [facility] Comment:Desirable Cholestero l: less than 200 mg/dLBorderline High Cholesterol: 200-239 mg/dLHigh Cholesterol: greater than 239 mg/dL LDL Cholesterol Calculated 133(H) <100 mg/dL [facility] Comment:Desirable LDL: less than 100 mg/dLNear Optimal/Above Optimal LDL: 110- 129 mg/dLBorderline High LDL: 130-159 mg/dLHigh LDL: 160-189 mg/dLVery High LDL: greater than or equal to 190 mg/dL HDL Cholesterol 38(L) >40 mg/dL [facility] Comment:Desirable HDL: great er than 40 mg/dL Note: This HDL assay may give artificially low results in patients with liver disease. Blood Venous blood specimen / Unknown 09/23/2024 3:28 PM EST 09/23/2024 4:24 PM EST [facility] LAB BLOOD ORDERABLES Final Resul t [facility] [address] [place] [address] [phone] from Last 3 Months or Most Recently Relevant to Health Maintenance Insurance [employer] [address] [place] [phone] [facility] [address] [place] [phone] Care Teams Furniture Removalist Relationship Specialty Start Date End Date Maryann Montes ANP [address] [place] [phone] PCP - General Family Medicine 08/23/20
== END 2025-05-11 09:39 | disposition home or self-care (01) ==
DX: M54.12 Radiculopathy, cervical region (principal); G56.23 Lesion of ulnar nerve, bilateral upper limbs; G56.03 Carpal tunnel syndrome, bilateral upper limbs
CPT/HCPCS: 99213

== ENCOUNTER → 2025-05-11 09:16 | Outpatient (BNVA) | payer OTHER, SELFPAY | PROVIDERS: Visit Provider Orthopaedic Surgery | DX: Z71.2 Person consulting for explanation of examination or test findings (principal); G56.02 Carpal tunnel syndrome, left upper limb; G56.01 Carpal tunnel syndrome, right upper limb; G56.21 Lesion of ulnar nerve, right upper limb; G56.22 Lesion of ulnar nerve, left upper limb | CPT/HCPCS: 99212 ==

== ENCOUNTER 2025-09-24 09:16 | Outpatient (AMB) | payer OTHER, SELFPAY ==
--- OUTSIDE RECORDS SUMMARY | 2025-09-20 13:15 | XMS_ITS | Encounter Summary ---
Author Organization [facility] Address [address] [place] [address] Care Team Providers Care Topographical Engineer Name Role Phone Maryann Montes NP Primary Care Provider [phone] Reason for Visit * Therapy (Urgent) - Authorized Specialty Diagnoses / Procedures Referred By Contтатьяна t Referred To Contact Occupational Therapy Diagnoses Laceration of digital nerve of finger, initial encounter Flexor tendon laceration, finger, open wound, initial encounter Patricia Avila MD [address] [facility] [address] [place] [address] Phone: tel: fax: Referral ID Status Reason Start Date Expiration Date Visits Requested Visits Authorized [id number] Authorized Consult and Treat 09/01/2025 09/01/2026 9 9 Encounter Details Date Type Department Care Team (Late st Contact Info) Description 09/20/2025 1:15 PM EST Treatment [facility] [address] [facility] [address] [place] [address] Nica Aparicio, OT Flexor tendon laceration of finger with open wound, subsequent encounter (Primary Dx); Laceration of digital nerve of finger, subsequent encounter Social History Tobacco Use Types Packs/Day Years Used Date Smoking Tobacco: Former Cigarettes Smokeless Tobacco: Never Alcohol Use Standard Drinks/Week Comments Yes 0 (1 standard drink = 0.6 oz pur e alcohol) occasional Interpersonal Safety Answer Date Record ed Physical Abuse Unrecognized value 09/01/2025 Verbal Abuse Unrecognized value 09/01/2025 Sex and Gender Information Value Date Recorded Sex Assigned at Male 06/06/2025 12:56 PM EDT Legal Sex Male 9:05 PM EST Gender Identity Male 06/06/2025 12:56 PM EDT Sexual Orientation Straight 06/06/2025 12 :56 PM EDT documented as of this encounter Progress Notes * Nica Aparicio OT - 09/20/2025 1:15 PM EST Occupational Therapy Occupational Therapy Treatment Patient Name: Xavier Morillo Today's Date: 09/20/2025 Subjective Subjective: I HAVE BEEN WASHING IT VISIT # 3 LEFT MIDDLE FINGER FDP AND DIGITAL NERVE REPAIR Problem List Problem List[1] Pain: Pain Assessment Pain Assessment: 0-10 Pain Score: (NO RESTING PAIN BUT END RANGE PROM DIGIT FLEXION UP TO LEVEL 7) Objective General Visit Information: General Observation/Findings/Presence Chart Reviewed: Yes Family/Caregiver Present: Yes Extremity Assessments: STITCHES OUT WITH SOME SCABBING MIDDLE DIP CREASE Modalities: Ultrasound Ultrasound Location: VOLAR MIDDLE DIP SCAR Ultrasound Parameters: .3 WCM AT 50 PERCENT PULSED X 10 MINS Ultrasound Goals: (EDEMA AND SCAR) Procedure: Therapeutic Exercise Therapeutic Exercise Activity 1: FLUIDOTHERAPY FOR GENTLE ROM AND DESENSITIZATION X 17 MINS, U/S, SOFT TISSUE MOBILIZATION AND MILKING TO VOLAR MIDDLE FINGER, PROM ALL JOINTS ALL DIGITS WITH MIDDLE DIP TO 30 DEGREES FLEXION, INSTRUCT IN SCAR MANAGEMENT, ISSUE STOCKINETTE FOR UNDER SPLINT Splinting and Casting: CONTINUE WITH DBS Treatment: SEE ABOVE Assessment/Plan Plan OT Plan: ULTRASOUND AND THERAPEUTIC EXERCISE OT Frequency : (1 TO 2 TIMES A WEEK) Duration: (VISIT # 3) Goals: Goals Addressed This Visit's Progress OT STGS 12 TO 16 VISITS On track # 1 FULL WOUND CLOSURE # 2 PARTICIPATE IN SCAR MANAGEMENT TO HAVE NO ADHERENCE # 3 NO VISIBLE EDEMA # 4 IMPROVE LEFT WRIST EXTENSION FROM 45 TO 70 DEGREES WITH GOOD STRENGTH TO WEIGHTBEAR # 5 IMPROVE LEFT MIDDLE FINGER PIP EXTENSION FROM - 30 TO LESS THAN - 15 DEGREES UPON REACH # 6 ACHIEVE ALL PROM DIGIT FLEXION TO THE DPC # 7 REDUCE DASH SCORE FROM 95 TO LESS THAN 20 [1] Patient Active Problem List Diagnosis Flexor tendon laceration of finger with open wound Laceration of digital nerve of finger documented in this encounter Plan of Treatment Upcoming Encounters Date Type Department Care Team (Late st Contact Info) Description 09/27/2025 1:15 PM EST Treatment [facility] [address] [phone] Nica Aparicio, OT 09/27/2025 2:00 PM EST Office Visit Orthopedic Surgery - [place] 175 [facility] [address] [place] [phone] Patricia Avila MD 175 [facility] [address] [place] [phone] 09/29/2025 11:15 AM EST Treatment [facility] [address] [place] [phone] Nica Aparicio, OT 10/04/2025 1:15 PM EST Treatment [facility] [address] [phone] Nica Aparicio, OT 10/06/2025 1:15 PM EST Treatment [facility] [address] [place] [phone] Nica Aparicio, OT 10/11/2025 1:15 PM EST [facility] [address] [place] [phone] Nica Aparicio OT documented as of this encounter Goals Goal Patient Goal Type Associated Problems Recent Progress Patient-Stated? Author <enter goal here> General Yes Nica Aparicio OT Note: OT PATIENT GOAL REGAIN FUNCTIONAL USE LEFT HAND FOR ALL DAILY TASKS OT STGS 12 TO 16 VISITS General On track( 025 12:46 PM EST) No Nica Aparicio OT Note: # 1 FULL WOUND CLOSURE # 2 PARTICIPATE IN SCAR MANAGEMENT TO HAVE NO ADHERENCE # 3 NO VISIBLE EDEMA # 4 IMPROVE LEFT WRIST EXTENSION FROM 45 TO 70 DEGREES WITH GOOD STRENGTH TO WEIGHTBEAR # 5 IMPROVE LEFT MIDDLE FINGER PIP EXTENSION FROM - 30 TO LESS THAN - 15 DEGREES UPON REACH # 6 ACHIEVE ALL PROM DIGIT FLEXION TO THE DPC # 7 REDUCE DASH SCORE FROM 95 TO LESS THAN 20 Autogenerated Goal Care Plan Autogenerated Problem Patricia Joy MD documented as of this encounter Visit Diagnoses Diagnosis Flexor tendon laceration of finger with open wound, subsequent encounter- Primary Laceration of digital nerve of finger, subsequent encounter documented in this encounter Additional Health Concerns Active Problems Noted Date Diagnosed Date Autogenerated Problem 09/02/2025 documented as of this encounter Care Teams Topographical Engineer Relationship Specialty Start Date End Date Maryann Montes NP [address] [place] [phone] PCP - General 06/06/25 documented as of this encounter
--- OUTSIDE RECORDS SUMMARY | 2025-09-23 12:45 | XMS_ITS | Encounter Summary ---
Author Organization [facility] Address [address] [place] [address] Care Team Providers Care Risk Control Field Representative Name Role Phone Maryann Montes NP Primary Care Provider Reason for Visit * Therapy (Urgent) - Authorized Specialty Diagnoses / Procedures Referred By Contтатьяна t Referred To Contact Occupational Therapy Diagnoses Laceration of digital nerve of finger, initial encounter Flexor tendon laceration, finger, open wound, initial encounter Patricia Avila MD 175 [facility] [address] [place] [address] Phone: tel: fax: Referral ID Status Reason Start Date Expiration Date Visits Requested Visits Authorized [id number] Authorized Consult and Treat 09/01/2025 09/01/2026 9 9 Encounter Details Date Type Department Care Team (Late st Contact Info) Description 09/23/2025 12:45 PM EST Treatment [facility] [address] [facility] [address] [place] [phone] Nica Aparicio, OT Flexor tendon [...] Progress Notes * Nica Aparicio OT - 09/23/2025 12:45 PM EST Occupational Therapy Occupational Therapy Treatment Patient Name: Xavier Morillo Today's Date: 09/23/2025 Subjective Subjective: GOOD VISIT # 4 LEFT MIDDLE FINGER FDP AND DIGITAL NERVE REPAIR Problem List Problem List[1] Pain: Pain Assessment Pain Assessment: 0-10 Pain Score: (NONE AT REST , MIDDLE DIP WITH PROM FLEXION LEVEL 4) Objective General Visit Information: General Observation/Findings/Presence Chart Reviewed: Yes Family/Caregiver Present: Yes Extremity Assessments: NO SCABBING AT VOLAR DIP JOINT Modalities: Ultrasound Ultrasound Location: VOLAR LEFT MIDDLE FINGER WITH INTERMITTENT DIP FLEXION Ultrasound Parameters: .3 WCM AT 50 PERCENT PULSED X 10 MINS Ultrasound Goals: (EDEMA AND SCAR) Procedure: Therapeutic Exercise Therapeutic Exercise Activity 1: FLUIDOTHERAPY FOR AROM, STRETCHING AND DESENSITIZATION X 20 MINS, U/S, SOFT TISSUE SCAR MOBILIZATION, EDEMA MILKING, PROM ALL JOINTS ALL DIGITS, ISSUE STOCKINETTE TO WEAR UNDER SPLINT Treatment: SEE ABOVE Assessment/Plan Plan OT Plan: ULTRASOUND AND THERAPEUTIC EXERCISE OT Frequency : (1 TO 2 TIMES A WEEK) Duration: (VISIT # 4) Goals: Goals Addressed This Visit's Progress OT [...] Info) Description 09/27/2025 1:15 PM EST Treatment [facility] Occupational Therapy [address] [place] [phone] Nica Aparicio, OT 09/27/2025 2:00 PM EST Office Visit Orthopedic Surgery - [place] 175 [facility] [address] [place] [phone] Patricia Avila MD [address] [phone] 09/29/2025 11:15 AM EST Treatment [facility] [address] [phone] Nica Aparicio, OT 10/04/2025 1:15 PM EST [facility] [address] [phone] Nica Aparicio, OT 10/06/2025 1:15 PM EST [facility] [address] [place] [phone] Nica Aparicio, OT 10/11/2025 1:15 PM EST Treatment [facility] [address] [phone] Nica Aparicio OT documented as of [...] 20 Autogenerated Goal Care Plan Autogenerated Problem No Patricia Avila MD documented as of this encounter Visit Diagnoses Diagnosis Flexor tendon laceration of finger with open wound, subsequent encounter- Primary Laceration of digital nerve of finger, subsequent encounter documented in this encounter Additional Health Concerns Active Problems Noted Date Diagnosed Date Autogenerated Problem 09/02/2025 documented as of this encounter Care Teams Risk Control Field Representative Relationship Specialty Start Date End Date Maryann Montes NP [address] [phone] PCP - General 06/06/25 documented as of this encounter
--- NOTE | 2025-09-24 09:18 | MHC.OFFVIS ---
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 Patient was referred by [facility] 11/16/24 at their visit he reported that the neck pain was radiating into both arms for the past 10 years. He also reported that his lower back pain is radiating into the right leg. At today's visit he states that the neck pain is radiating into both shoulders and down the arms. He reports that he is having numbness and tingling in his hands. Patient noted that he is still having lower back pain that is radiating into the right leg and now the pain is radiating into the right foot. He reports that the right foot is falling asleep and he had a fall two months ago due to slipping. Pain scale- Neck pain 5 Pie Bakery Laborer Required: Yes Pie Bakery Laborer Services: Pie Bakery Laborer Present Pie Bakery Laborer Name: Rodney Amaro [id number] Allergies No Known Allergies (No Known Allergies*) Allergy (Verified 05/11/25 09:19) Medication List - Last Reconciled 09/24/25 by Gladys Eng MD atorvastatin 20 mg PO DAILY diclofenac sodium 0 mg PO duloxetine 30 mg PO DAILY omeprazole 40 mg PO DAILY HPI Comments Details: He was specifically referred for neck pain but he brings up a chronic back pain. He qualifies that either one is NOT from an injury. Neck and back pain are separate. Posterior neck pain. Goes down to both arms. Today he is wearing a left hand splint, he says he had tendon surgery 2 weeks at [facility]. Sometimes he gets numbness on bilateral 4th and 5th digits. No recent PT for neck pain. No recent imaging for cervical spine. Seen by [facility] for shoulder pain initially. Has seen [facility] for Carpal Tunnel Syndrome. EMG done by Dr. Nelson last March showed mild Carpal Tunnel Syndrome and ulnar neuropathy. [facility] Medical History (Updated 09/24/25 @ 09:45 by Gladys Eng MD) High cholesterol Surgical History H/O left knee surgery Social History Current occupational status: employed Current occupation: maintenance/rt hand Review of Systems Const All systems reviewed & are unremarkable except as noted in HPI and below Physical Exam Exam Exam: Constitutional: Patient appears to be in no acute distress, well nourished and well developed. Patient was appropriately conversant and oriented. Good historian. MSK: Inspection reveals appropriate head and neck positioning. Tender over trapezius. Cervical ROM was full. Spurling's sign negative. Bilateral shoulder, elbow and wrist ROM WNL. No ligamentous laxity or crepitance. No increased effusion. Strength is 5/5 in all muscle groups tested. No increased tone noted. Neurological: Mood appears normal, good affect, and appropriate for the circumstances. Neurologic examination of the upper and lower extremities was nonfocal with intact sensation, muscle stretch reflexes and without focal motor deficits. Morales?s negative bilaterally. Gait is non-antalgic without loss of balance. Vital Signs: BMI result Body Mass Index 30.4 Results Reviewed Results Reviewed: Ordering Physician: Osiris Mendieta PA-C Date of Service: 03/16/25 Procedure(s): NE electromyogram (EMG) Accession Number(s): [id number] cc: Osiris Mendieta PA-C~ FINDINGS: Bilateral median and ulnar motor and sensory studies were performed. Bilateral radial sensory studies and medial and lateral antecubital brachial sensory studies were performed. Paraspinal muscles were tested with a needle. IMPRESSION: 1. Mild bilateral median neuropathy across carpal tunnel. 2. Mild bilateral ulnar neuropathy across cubital tunnel with no evidence of proximal lesion. Hallie Nelson MD Ordering Physician: Osiris Mendieta PA-C Date of Service: 01/05/25 Procedure(s): XR shoulder LT min 2V Accession Number(s): [id number] cc: Osiris Mendieta PA-C; DANIELA KRISHNAN NP~ CLINICAL HISTORY: M25.519 - Pain in unspecified shoulder 3 view left shoulder Comparison: None Findings: No acute fracture. No dislocation. Mild degenerative changes of the greater tuberosity. Glenohumeral joint and acromioclavicular joint are intact. No erosions. No radiopaque foreign body. IMPRESSION: 1. No acute findings This document has been electronically signed by: Tina Cabral MD on 01/06/2025 17:14:33 Ordering Physician: Osiris Mendieta PA-C Date of Service: 01/05/25 Procedure(s): XR shoulder RT min 2V Accession Number(s): [id number] cc: Osiris Mendieta PA-C; DANIELA KRISHNAN NP~ EXAMINATION: XR SHOULDER 2 OR MORE VIEWS RIGHT HISTORY: M25.519 - Pain in unspecified shoulder COMPARISON: Alexx is made with the prior examination dated 03/13/2019. FINDINGS: Three views of the right shoulder are submitted. Osseous mineralization is normal. There is no fracture or dislocation. The glenohumeral and acromioclavicular joint spaces are preserved. The soft tissues are unremarkable. XR/XR shoulder RT min 2V IMPRESSION: Unremarkable examination of the right shoulder. Electronically signed by: Adonay Watson MD 01/06/2025 08:59 AM EDT RP I reviewed records from the following: [ ] Assessment & Plan Assessment & Plan (1) Chronic neck pain with normal neurological examination: Code(s): M54.2 - Cervicalgia; G89.29 - Other chronic pain Category: Medical (2) Myofascial pain: Code(s): M79.18 - Myalgia, other site Category: Medical Plan Chronic neck pain with tenderness over upper trapezius, no signs of cervical radiculopathy or myelopathy. We will send for cervical x-rays today. Recommend physical therapy, especially to work on myofascial pain on upper trapezius. We will schedule her separate appointment to evaluate for lower back pain. Assessment and plan discussed with patient, and patient was agreeable. All questions were answered thoroughly. Gladys Eng MD, LAURA Board Certified, [place] [employer] and [employer] (ABPMR) Board Certified, [place] [employer] (ABEM) Orders: Orders PT Evaluation and Treatment Today G89.29 - Other chronic pain, M54.2 - Cervicalgia, M79.18 - Myalgia, other site XR cervical spine 3V Today G89.29 - Other chronic pain, M54.2 - Cervicalgia, M79.18 - Myalgia, other site Coding Level of Care Code New Pt Level 4 (92008) Diagnoses Chronic neck pain with normal neurological examination M54.2; G89.29 Myofascial pain M79.18
[2025-09-24 09:26] VITALS: BMI 30.4
--- OUTSIDE RECORDS SUMMARY | 2025-09-24 09:48 | XMS_ITS | Clinical Summary ---
Author Organization [employer] Address [address] [facility] [address] [place] [address] Care Team Providers Care Telecommunications Linesworker Name Role Phone Maryann Montes Primary Care Provider [phone] Allergies No known active allergies Medications * This document contains information received from the source organization and may not represent a complete record from that organization. lidocaine (Lidoderm) 5 % patchIndication s:Low back pain radiating to right leg Apply 1 patch topically Once per day. Remove & discard patch within 12 hours or as directed by MD. 30 patch 2 11/10/19 25 Active gabapentin (Neurontin) 300 MG capsule Take 1 capsule by mouth 2 times daily. 02/02/20 25 Active atorvastatin (Lipitor) 20 MG tabletIndicatio ns:Dyslipidemia Take 1 tablet (20 mg) by mouth Once per day. 90 tablet 3 08/27/20 25 Active DULoxetine (Cymbalta) [address] capsuleIndicati ons:Ulnar neuropathy of both upper extremities Take 1 capsule twice daily with meal. Do not crush or chew. 180 capsule 1 08/27/20 25 Active atorvastatin (Lipitor) 20 MG tabletIndicatio ns:Dyslipidemia Take 1 tablet (20 mg) by mouth Once per day. 90 tablet 3 09/24/20 24 025 Discontinued(Re order (will not trigger notification to Pharmacy)) DULoxetine (Cymbalta) [address] capsuleIndicati ons:Ulnar neuropathy of both upper extremities TAKE 1 CAPSULE TWICE DAILY WITH MEAL. DO NOT CRUSH OR CHEW. 180 capsule 1 05/06/20 25 025 Discontinued(Re order (will not trigger notification to Pharmacy)) DULoxetine (Cymbalta) [address] capsuleIndfariba ons:Ulnar neuropathy of both upper extremities Take 1 capsule twice daily with meal. Do not crush or chew. 180 capsule 1 08/27/20 25 025 Discontinued atorvastatin (Lipitor) 20 MG tabletIndicatio ns:Dyslipidemia Take 1 tablet (20 mg) by mouth Once per day. 90 tablet 3 08/27/20 25 025 Discontinued Active Problems Problem Noted Date Diagnosed Date Low back pain radiating to right leg 11/10/2024 Ulnar neuropathy of both upper extremities 11/10 Overview (11/10/2024): Tolerating duloxetine well. Increased dose to 30 mg twice daily. Encounters Date Type Department Care Team Description 08/27/2025 11:00 AM EST Office Visit [facility] [address] [place] [phone] Maryann Montes ANP Need for hepatitis B screening test (Primary Dx); Ulnar neuropathy of both upper extremities; Dyslipidemia; Hypertriglyceridemia; Healthcare maintenance; Routine screening for STI (sexually transmitted infection); Dietary counseling; Exercise counseling 08/27/2025 Travel 08/26/2025 Telephone [facility] [address] [place] [phone] Maryann Montes ANP chart prep from Last 3 Months Immunizations Immunization Administration Dates Next Due Influenza injectable quadrivalent preservative f ree 09/28/2015 Influenza, seasonal, injectable, preservative fr ee 09/23/2024 Td (adult), 5 Lf tetanus tox oid, preservative free, adsorbed 07/08/2013 Tdap 08/16/2025,09/23/2024 Social History Tobacco Use Types Packs/Day Years Used Date Smoking Tobacco: Never Smokeless Tobacco: Never Tobacco Cessation:Counseling Given: Not Answered Depression Answer Date Recorded Patient Health Questionnaire-9 Score 2 08/27/2025 Patient Health Questionnaire-9 Score 2 08/27/2025 Last PHQ-9: Questionnaire Data Not on file 1 10/27/2024 Housing Stability Answer Date Recorded What is your housing situation today? I have kane mojica 09/11/[address] you li ve. Do you have problems with any of the following? None of the above 09/11/2024 Food Insecurity Answer Date Recorded Within the past 12 months, y ou worried that your food would run out before you got money to buy more: Never True 08/27/2025 Within the past 12 months,th e food you bought just didn't last and you didn't have enough money to get more: Never True Transportation Answer Date Recorded In the past [...] Answer Date Recorded Patient Health Questionnaire-2 Score 1 08/27/2025 Internet Access Answer Date Recorded Internet Access [...] Sign Reading Time Taken Comments Blood Pressure 110/80 08/27/2025 10:49 AM EST Pulse 70 08/27/2025 10:49 AM EST Temperature 36.6 C (97.8 F) 08/27/2025 10:49 AM EST Respiratory Rate 11 08/27/2025 10:49 AM EST Oxygen Saturation 97% 08/27/2025 10:49 AM EST Inhaled Oxygen Concentration - - Weight 94.8 kg (209 lb) 08/27/2025 10:49 AM EST Height 172.7 cm (5' 8 ) 08/27/2025 10:49 AM EST Body Mass Index 31.78 08/27/2025 10:49 AM EST Plan of Treatment Upcoming Encounters Date Type Department Care Team (Late st Contact Info) Description 12/20/2025 1:00 PM EDT Office Visit [facility] [address] [place] [address] Jb, Colleen, OD [address] [place], [place] [phone] Health Maintenance Due Date Last Done Comments CT Colonography 1967 Colonoscopy 1967 Colorectal Cancer Screening 1967 FIT DNA/Cologuard 1967 FIT 1967 FOBT 1967 Sigmoidoscopy 1967 Hepatitis B Vaccines (1 of 3 - 19+ 3-dose series) 1986 Pneumococcal Vaccine: 50+ Years (1 of 1 - PCV) 2017 Zoster Vaccines (1 of 2) 2017 COVID-19 Vaccine (3 - 2024-2 6 season) 2025 11/21/2021, 01/14/2021 Influenza Vaccine (#1) 2025 , 09/28/2015 Alcohol/Substance Use Screening 02/09/2026 02/09/2025 Disability Screening 02/09/2026 02/09/2025 Depression Screening 08/27/2026 08/27/2025, 08/27/2025 SDOH Screening 08/27/2026 08/27/2025 Tobacco Screening 08/27/2026 08/27/2025 Lipid Panel 09/23/2029 09/23/2024, 04/17/2021 DTaP/Tdap/Td Vaccines (3 - T d or Tdap) 08/16/2035 08/16/2025, 09/23/2024, 07/08/2013 RSV Patients and Patients Aged [...] EST) Hepatitis C Antibody Nonreactive Nonreactive [facility] Comment:Antibodies to HCV no t detected; does not exclude early acuteHCV infection. Blood Venous blood specimen / Unknown 09/23/2024 3:28 PM EST 09/23/2024 4:24 PM EST [facility] LAB BLOOD ORDERABLES Final Resul t [facility] [address] [place] [phone] * HIV-1/2 Antigen and Antibodies, Fourth Generation, with Reflexes (09/23/2024 3:28 PM EST) HIV AB/AG Nonreactive Nonreactive [facility] Comment:HIV-1 p24 Ag and/or HIV-1/HIV-2 Ab not detected.A test result that is nonreactive does not exclude thepossibility of exposure to or infection with HIV-1 and/orHIV-2. Nonreactive results in this assay for individualswith prior exposure to HIV-1 and/or HIV-2 may be due toantigen and antibody levels that are below the limit ofdetection of this assay.The [employer] HIV Ag/Ab Combo assay result andsupplemental assay results should be interpreted inconjunction with the patient's clinical presentation,history and other laboratory results. If the results areinconsistent with clinical evidence, additional testing issuggested to confirm the result. Blood Venous blood specimen / Unknown 09/23/2024 3:28 PM EST 09/23/2024 4:24 PM EST Maryann Montes ANP LAB BLOOD ORDERABLES Final Resul t Performing Organization Address [facility] de Phone Number [facility] [address] [place] [phone] * (ABNORMAL) Lipid Panel, Standard (09/23/2024 3:28 PM EST) Triglycerides 315(H) <150 mg/dL [facility] Comment:Desirable Triglyceri de: less than 150 mg/dLBorderline High Triglyceride 150-199 mg/dLHigh Triglyceride: 200-499 mg/dLVery High Triglyceride: greater than or equal to 5OO mg/dL Cholesterol 234(H) <200 mg/dL [facility] Comment:Desirable Cholestero l: less than 200 mg/dLBorderline High Cholesterol: 200-239 mg/dLHigh Cholesterol: greater than 239 mg/dL LDL Cholesterol Calculated 133(H) <100 mg/dL [facility] Comment:Desirable LDL: less than 100 mg/dLNear Optimal/Above Optimal LDL: 110- 129 mg/dLBorderline High LDL: 130-159 mg/dLHigh LDL: 160-189 mg/dLVery High LDL: greater than or equal to 190 mg/dL HDL Cholesterol 38(L) >40 mg/dL [facility] Comment:Desirable HDL: great er than 40 mg/dL Note: This HDL assay may give artificially low results in patients with liver disease. Blood Venous blood specimen / Unknown 09/23/2024 3:28 PM EST 09/23/2024 4:24 PM EST us Maryann Montes ANP LAB BLOOD ORDERABLES Final Resul t Performing Organization Address [facility] Co de Phone Number [facility] [address] [place] [phone] from Last 3 Months or Most Recently Relevant to Health Maintenance Insurance [place] [phone] [address] [facility] [place] [address] [place] [phone] Care Teams Telecommunications Linesworker Relationship Specialty Start Date End Date Maryann Montes ANP [address] [place] [phone] PCP - General Family Medicine 08/23/20
--- OUTSIDE RECORDS SUMMARY | 2025-09-24 09:48 | XMS_ITS | Clinical Summary ---
Author Organization [facility] Address [address] [place] [address] Phone Care Team Providers Care Waredresser Name Role Phone Maryann Montes NP Primary Care Provider [phone] Allergies No known active allergies Medications atorvastatin (LIPITOR) 20 mg tablet Take 1 tablet (20 mg total) by mouth at bedtime. Active DULoxetine (CYMBALTA) [address] capsule Take 1 capsule (30 mg total) by mouth 1 (one) time each day. Do not crush or chew. Active acetaminophen (TYLENOL) 500 mg tablet Take 2 tablets (1,000 mg total) by mouth every 8 (eight) hours if needed for moderate pain. Do not exceed 3 grams of Tylenol per day. 60 tablet 5 Active ibuprofen (ADVIL,MOTRIN) 600 mg tablet Take 1 tablet (600 mg total) by mouth every 8 (eight) hours if needed for moderate pain. 30 each 5 Active oxyCODONE (ROXICODONE) 5 mg immediate release tablet Take 1 tablet (5 mg total) by mouth every 4 (four) hours if needed for severe pain. Max Daily Amount: 30 mg 15 each 5 Active senna-docusate (PERICOLACE) 8.6-50 mg per tablet Take 2 tablets by mouth at bedtime. 20 tablet 5 Active bacitracin (bacitracin zinc) 500 unit/gram ointment Apply 1 Application topically 2 (two) times a day for 10 days. 120 g 5 09/01/20 25 Discontin ued(Stop Taking at Discharge ) Active Problems Problem Noted Date Diagnosed Date Flexor tendon laceration of finger with open wou nd 08/27/2025 Laceration of digital nerve of finger 08/27/2025 Encounters Date Type Department Care Team Description 09/23/2025 12:45 PM EST Treatment [facility] Occupational Therapy [address] [place] [phone] Nica Aparicio OT Flexor tendon laceration of finger with open wound, subsequent encounter (Primary Dx); Laceration of digital nerve of finger, subsequent encounter 09/20/2025 1:15 PM EST Treatment [facility] Occupational Therapy [address] [place] [phone] Nica Aparicio OT Flexor tendon laceration of finger with open wound, subsequent encounter (Primary Dx); Laceration of digital nerve of finger, subsequent encounter 09/14/2025 10:30 AM EST Office Visit Orthopedic Surgery - [address] [phone] Patricia Avila MD Flexor tendon laceration of finger with open wound, subsequent encounter (Primary Dx); Laceration of digital nerve of finger, subsequent encounter; Post-operative state 09/13/2025 1:15 PM EST Treatment [facility] Occupational [address] [phone] Nica Aparicio OT Flexor tendon laceration, finger, open wound, initial encounter (Primary Dx); Laceration of digital nerve of finger, subsequent encounter 09/06/2025 4:45 PM EST Evaluation [facility] Occupational Therapy [address] [place] [phone] Nica Aparicio OT Laceration of digital nerve of finger, initial encounter; Flexor tendon laceration, finger, open wound, initial encounter 09/06/2025 Plan of Care Documentation [facility] Occupational Therapy [address] [place] [phone] 09/01/2025 7:48 AM EST Anesthesia Event [facility] OR [address] [place] [phone] Sukhwinder Landaverde DO 09/01/2025 7:30 AM EST - 09/01/2025 12:00 PM EST Surgery [facility] Main OR [address] [place] [phone] Ptaricia Avila MD REPAIR TENDON FDP left Long; repair radial digital nerve left long [94971 (CPT ) +1 more] 09/01/2025 5:50 AM EST - 09/01/2025 12:55 PM EST Hospital Encounter [facility] OR [address] [place] [phone] Patricia Avila MD Laceration of digital nerve of finger, initial encounter (Primary Dx); Flexor tendon laceration, finger, open wound, initial encounter Discharge Disposition: Home or Self Care 08/27/2025 9:00 AM EST Consult Orthopedic Surgery [facility] [address] [facility] [address] [place] [phone] Hattie Smith PA Flexor tendon laceration of finger with open wound, initial encounter (Primary Dx); Laceration of digital nerve of finger, initial encounter 08/27/2025 [place] [facility] [address] [facility] [address] [place] [phone] Patricia Avila MD 08/16/2025 6:13 PM EST - 08/17/2025 1:13 AM EST Emergency [facility] Emergency [address] [place] [phone] Alisa Best MD Ziebro, John, MD Finger laceration, initial encounter (Primary Dx) Discharge Disposition: Home or Self Care from Last 3 Months Immunizations Immunization Administration Dates Next Due Tdap Tetanus diptheria acell ular pertussis (Boostrix; Adacel) 7yo and older 08/16/2025 Surgical History Surgery Date Site/Laterality Comments LIPOMA RESECTION FOOT SURGERY 10 years ago HAND SURGERY 09/01/2025 Left Repair FDP tendon and digital nerve left long finger Medical History Medical History Date Comments Back pain Arthritis Hyperlipidemia Social History Tobacco Use Types Packs/Day Years Used Date Smoking Tobacco: Former Cigarettes Smokeless Tobacco: Never Tobacco Cessation:Counseling Given: Not Answered Alcohol Use Standard Drinks/Week Comments Yes 0 [...] Orientation Straight 06/06/2025 12 :56 PM EDT Last Filed Vital Signs Vital Sign Reading Time Taken Comments Blood Pressure 116/80 09/01/2025 11:20 AM EST Pulse 68 09/01/2025 11:20 AM EST Temperature 36.1 C (97 F) 09/01/2025 11:20 AM EST Respiratory Rate 16 09/01/2025 11:20 AM EST Oxygen Saturation 95% 09/01/2025 11:20 AM EST Inhaled Oxygen Concentration - - Weight 90.3 kg (199 lb) 09/14/2025 10:25 AM EST Height 172.7 cm (5' 8 ) 09/14/2025 10:25 AM EST Body Mass Index 30.26 09/14/2025 10:25 AM EST Plan of Treatment Upcoming Encounters Date Type Department Care Team (Late st Contact Info) Description 09/27/2025 1:15 PM EST [facility] [address] [place] [phone] Nica Aparicio OT 09/27/2025 2:00 PM EST Office Visit Orthopedic Surgery - [place] [address] [phone] Patricia Avila MD [address] [phone] 09/29/2025 11:15 AM EST Treatment [facility] [address] [phone] Nica Aparicio OT 10/04/2025 1:15 PM EST [facility] [address] [place] [phone] Nica Aparicio OT 10/06/2025 1:15 PM EST Treatment [facility] Occupational Therapy [address] [phone] Nica Aparicio, DARBY 10/11/2025 1:15 PM EST Treatment [facility] Occupational Therapy [address] [phone] Nica Aparicio, OT Health Maintenance Due Date Last Done Comments Colorectal Cancer Screening: Colonoscopy 1965 Hepatitis B Vaccines (1 of 3 - 19+ 3-dose series) 1986 Pneumococcal Vaccine: 50+ Years (1 of 1 - PCV) 2017 Zoster Vaccines (1 of 2) 2017 Social Influencers of Health Screening 11/01/2023 Depression Screening 10/07/2024 COVID-19 Vaccine (3 - 2024-2 6 season) 2025 11/21/2021, 01/14/2021 Influenza Vaccine (#1) 2025 , 09/28/2015 Cholesterol Screening (Lipid Panel) 09/23/2029 09/23/2024 DTaP,Tdap,and Td Vaccines (4 - Td or Tdap) 08/16/2035 08/16/2025, 09/23/2024, 07/08/2013 RSV Immunization Adult Patients (1 - 1-dose 75+ series) 2042 HIV [...] to complete this topic RSV Immunization Patients Under 20 months Aged Out No longer eligible b ased on patient's age to complete this topic Varicella Vaccines Aged Out No longer eligible based on patient's age to complete this topic Goals Goal Patient Goal Type Associated Problems [...] Plan Autogenerated Problem No Patricia Avila MD Medical Devices Implanted Type Area Buffing And Sueding Machine Operator Device Identifier Shelf Expiration Date Model / Serial / Lot [place] Sut Quick Mini 3-0 Orth - Sn/A - [id number] Implanted:Qty: 1 on 09/01/2025 by Patricia Avila MD at [facility] Arthroscopy Implants Sports Med Left: Middle Finger JNJ DEPUY MITEK 06/06/2028 [id number] / N/A / [id number] Procedures Procedure Name Priority Date/Time Associated Diagnosis Comments OXYGEN THERAPY, ADULT Routine 09/01/2025 10:28 AM EST TH AN LMA(NO CHARGE) Routine 09/01/2025 8:06 AM EST W[place] SUTURE OF DIGITAL NERVE HAND OR FOOT 1 NERVE 09/01/2025 7:48 AM EST Flexor tendon laceration, finger, open wound, initial encounter Laceration of digital nerve of finger, initial encounter Case Notes MINI C-ARM, microscope, regional block, lead hand,MICRO MITEK ANCHORS,? NERVE ALLOGRAFT (IN FREEZER 15 X2 MM) WV REPAIR/ADVMNT PROFUNDUS TENDON W INTACT SRFCL TENDON PRIM EA TENDON 09/01/2025 7:48 AM EST Flexor tendon laceration, finger, open wound, initial encounter Laceration of digital nerve of finger, initial encounter Case Notes MINI C-ARM, microscope, regional block, lead hand,MICRO MITEK ANCHORS,? NERVE ALLOGRAFT (IN FREEZER 15 X2 MM) TH AN NERVE BLOCK SUPRACLAVICULAR (NO CHARGE) Routine 09/01/2025 7:31 AM EST TH AN NERVE BLOCK SUPRACLAVICULAR (CHARGE) Routine 09/01/2025 7:31 AM EST ED LACERATION REPAIR Routine 08/16/2025 11:30 PM EST ED LACERATION REPAIR Routine 08/16/2025 11:30 PM EST XR HAND 3+ VIEWS LEFT STAT 08/16/2025 3:55 PM EST from Last 3 Months Results * TH AN LMA(NO CHARGE) (09/01/2025 8:06 AM EST) Sukhwinder Schuler DO - 09/01/2025 8:06 AM EST Sukhwinder Landaverde DO 09/01/2025 8:07 AM General Information and Staff Patient location during procedure: OR Other anesthesia staff: KAYLA Mendoza Performed: other anesthesia staff Performed by: Sukhwinder Landaverde DO Authorized by: Sukhwinder Landaverde DO Intubation Airway not difficult Reason: elective Final Airway Details LMA Size: 5 LMA Type: Unique LMA Seal Pressure: Final airway type: LMA Indications and Patient Condition Indications for airway management: anesthesia and airway protection Sedation level: Yes Preoxygenated: yesSoft Tissue Damage: No Dentition Unchanged: Yes Patient position: sniffing Mask difficulty assessment: 0 - not attempted us Sukhwinder Landaverde DO ANESTHESIA ORDERABLES Final Res ult * TH AN NERVE BLOCK SUPRACLAVICULAR (CHARGE), TH AN NERVE BLOCK SUPRACLAVICULAR (NO CHARGE) (09/01/2025 7:31 AM EST) Dolores Minor SRNA - 09/01/2025 7:31 AM EST KAYLA Mendoza 09/01/2025 9:53 AM Peripheral Block Patient location during procedure: pre-op Start time: 09/01/2025 7:31 AM End time: 09/01/2025 7:44 AM Reason for block: at surgeon's request Staffing Performed: anesthesiologist and resident/DIE OUT WORKER/CAA Anesthesiologist: Sukhwinder Landaverde DO Resident/DIE OUT WORKER: KAYLA Mendoza Preanesthetic Checklist Completed: patient identified, IV checked, site marked, risks and benefits discussed, surgical consent, monitors and equipment checked, pre-op evaluation and timeout performed Peripheral Block Patient position: sitting Prep: ChloraPrep Block type: supraclavicular Laterality: right Injection technique: single-shot Guidance: ultrasound guided Needle Needle type: long-bevel Needle gauge: 21 G Needle length: 10 cm Needle localization: anatomical landmarks Assessment Injection assessment: negative aspiration for heme, no paresthesia on injection, incremental injection with negative aspiration q 5ml, local visualized surrounding nerve on ultrasound and transient paresthesias (transient left arm parasthesia with needle movement, immediately resolved with repositioning) Paresthesia pain: none Slow fractionated injection: yes Additional Notes Left supraclavicular nerve block done under sterile conditions with ultrasound guidance. Timeout performed. Patient sedated with fentanyl and versed per anesthesia record. Area prepped with chlorhexidine. Ultrasound placed. Relevant anatomy identified. 0.5% ropivacaine with 5 mg of decadron was used for the block. Block needle placed and guided to location using ultrasound. 30 ml of 0.5% ropivacaine with decadron was injected incrementally. All with negative aspiration for heme. Patient tolerated the procedure well. Block done by SNRA and Attending Transient left arm paraesthesia with needle redirection. Immediately resolved when needle repositioned Performed for post operative pain management. Sukhwinder Landaverde DO ANESTHESIA ORDERABLES Edited Re sult - Final * Laceration Repair (08/16/2025 11:30 PM EST) Lalo Barfield MD - 08/16/2025 11:30 PM EST Lalo Strickland MD 08/28/2025 9:11 PM Laceration Repair Date/Time: 08/16/2025 11:30 PM Performed by: JOSIE Coburn Authorized by: Lalo Strickland MD Consent: Consent obtained: Verbal Whitethorn protocol: Procedure explained and questions answered to patient or proxy's satisfaction: yes Test results available: yes Imaging studies available: yes Required blood products, implants, devices, and special equipment available: yes Site/side marked: yes Patient identity confirmed: Verbally with patient Anesthesia: Anesthesia method: Nerve block Block anesthetic: Lidocaine 2% WITH epi Block technique: Base of L 2,3,4 digits Block injection procedure: Negative aspiration for blood, anatomic landmarks palpated and anatomic landmarks identified Block outcome: Anesthesia achieved Laceration details: Location: Finger Finger location: L ring finger Pre-procedure details: Preparation: Patient was prepped and draped in usual sterile fashion and imaging obtained to evaluate for foreign bodies Exploration: Limited defect created (wound extended): no Hemostasis achieved with: Direct pressure Imaging obtained: x-ray Imaging outcome: foreign body noted Contaminated: no Treatment: Area cleansed with: Povidone-iodine and saline Amount of cleaning: Standard Irrigation solution: Sterile saline Irrigation method: Pressure wash Visualized foreign bodies/material removed: no Debridement: None Skin repair: Repair method: Sutures Suture size: 4-0 Suture material: Nylon Suture technique: Simple interrupted Number of sutures: 6 Repair type: Repair type: Simple Post-procedure details: Dressing: Antibiotic ointment, non-adherent dressing and splint for protection Procedure completion: Tolerated Lalo Strickland MD IN CLINIC/BEDSIDE ORDERABLES Fin al Result * Laceration Repair (08/16/2025 11:30 PM EST) Lalo Barfield MD - 08/16/2025 11:30 PM EST Lalo Srtickland MD 08/28/2025 9:11 PM Laceration Repair Date/Time: 08/16/2025 11:30 PM Performed by: JOSIE Coburn Authorized by: Lalo Strickland MD Consent: Consent obtained: Verbal Consent given by: Patient Risks, benefits, and alternatives were discussed: yes Whitethorn protocol: Procedure explained and questions answered to patient or proxy's satisfaction: yes Test results available: yes Imaging studies available: yes Required blood products, implants, devices, and special equipment available: yes Site/side marked: yes Patient identity confirmed: Verbally with patient Anesthesia: Anesthesia method: Nerve block Block location: Base of 2nd, 3rd, 4th digits Block anesthetic: Lidocaine 2% WITH epi Block injection procedure: Negative aspiration for blood and anatomic landmarks identified Block outcome: Anesthesia achieved Laceration details: Location: Finger Finger location: L long finger Pre-procedure details: Preparation: Patient was prepped and draped in usual sterile fashion and imaging obtained to evaluate for foreign bodies Exploration: Limited defect created (wound extended): no Hemostasis achieved with: Direct pressure Imaging obtained: x-ray Imaging outcome: foreign body not noted Treatment: Area cleansed with: Povidone-iodine and saline Amount of cleaning: Standard Irrigation solution: Sterile saline Irrigation method: Pressure wash Visualized foreign bodies/material removed: no Debridement: None Layers/structures repaired: Deep dermal/superficial fascia Skin repair: Repair method: Sutures Suture size: 4-0 Suture material: Nylon Suture technique: Simple interrupted Number of sutures: 6 Repair type: Repair type: Simple Post-procedure details: Dressing: Antibiotic ointment, splint for protection and non-adherent dressing Procedure completion: Tolerated us Lalo Strickland MD IN CLINIC/BEDSIDE ORDERABLES Fin al Result * XR Hand 3+ Views Left (08/16/2025 3:55 PM EST) Anatomical Region Laterality Modality Upper Extremities, Hand [facility] 08/16/2025 4:23 PM EST Impressions 08/16/2025 4:24 PM EST FINDINGS/IMPRESSION: Soft tissue lacerations noted at the 2nd 3rd and 4th digits with fracture at the base of the 3rd distal phalanx with tiny adjacent osseous fragments. There is a radiopaque foreign body in the dorsal soft tissues about the 2nd metacarpal. -------- FINAL REPORT -------- Dictated By: Emil Robert Dictated Date: 08/16/2025 16:23 ET Assigned Physician: Emil Robert Reviewed and Electronically Signed By: Emil Robert Signed Date: 08/16/2025 16:24 ET Workstation ID: [id number] Transcribed By: Self Edit Transcribed Date: 08/16/2025 16:23 ET Narrative 08/16/2025 4:24 PM EST XR HAND 3+ VIEWS LEFT INDICATION: pain cut fingers 2-4 with saw, r/o fx TECHNIQUE: XR HAND 3+ VIEWS LEFT COMPARISON: None Procedure Note Emil Robert MD - 08/16/2025 XR HAND 3+ VIEWS LEFT INDICATION: pain cut fingers 2-4 with saw, r/o fx TECHNIQUE: XR HAND 3+ VIEWS LEFT COMPARISON: None IMPRESSION: FINDINGS/IMPRESSION: Soft tissue lacerations noted at the 2nd 3rd and 4thdigits with fracture at the base of the 3rd distal phalanx with tinyadjacent osseous fragments. There is a radiopaque foreign body in thedorsal soft tissues about the 2nd metacarpal. -------- FINAL REPORT -------- Dictated By: Emil Robert Dictated Date: 08/16/2025 16:23 ET Assigned Physician: Emil Robert Reviewed and Electronically Signed By: Emil Robert Signed Date: 08/16/2025 16:24 ET Workstation ID: [id number] Transcribed By: Self Edit Transcribed Date: 08/16/2025 16:23 ET us Alisa Best MD IMG XR PROCEDURES Final Result from Last 3 Months Additional Health Concerns Active Problems Noted Date Diagnosed Date Autogenerated Problem 09/02/2025 Insurance [facility] Member Subscriber Plan / Payer (Ef fective 2025-Present) Name:Dennis Quesadao Relation to Subscriber:Employee Name:MAHAMED QUESADA Date of :1965 (Home) Address: [place] [address] [address] Payer ID:[id number] Group ID:[id number] Type:Indemnity Address: [address] [employer] [facility] [employer] Advance Directives * Full Code - Default (Latest Code Status on File) Date Activated Date Inactivated Comments 09/01/2025 5:58 AM 09/01/2025 3:11 PM This is or len is used when code status has not been discussed with the patient, or code status is otherwise unknown/unconfirmed To update the patient's code status, place a code status order. Do not modify or discontinue any currently active code status orders. Care Teams Waredresser Relationship Specialty Start Date End Date Maryann Montes NP [address] [place] [phone] PCP - General 06/06/25
== END 2025-09-24 10:36 | disposition home or self-care (01) ==
LOC: HO.HOS 09:16
PROVIDERS: Visit Provider Physical Medicine & Rehabilitation
DX: M54.2 Cervicalgia (principal); G89.29 Other chronic pain; M79.18 Myalgia, other site
CPT/HCPCS: 99204

== ENCOUNTER 2025-09-24 09:16 | Outpatient (REF) | payer OTHER, SELFPAY ==
--- NOTE | ~2025-09-24 | XR_ITS ---
EXAMINATION: XR CERVICAL SPINE CLINICAL INFORMATION: M54.2 - Cervicalgia COMPARISON: None available. TECHNIQUE: 3 views of the cervical spine were obtained. FINDINGS: There is no significant scoliosis. There is a normal lordosis. There is no subluxation. Normal alignment. No fracture, compression deformity, or suspicious bone lesion. Craniocervical junction and C1-2 articulation are intact and aligned. Very mild disc degeneration is present diffusely. Normal facet alignment bilaterally with mild multilevel facet and uncinate spurring bilaterally. There is no prevertebral or paravertebral soft tissue abnormality. Imaged lung apices appear clear. XR/XR cervical spine 3V IMPRESSION: 1. No acute findings of the cervical spine. 2. Mild multilevel cervical spondylosis. Electronically signed by: Daniel Pope MD 09/24/2025 10:14 AM DEYVI HENNESSY
== END 2025-09-24 09:17 | disposition home or self-care (01) ==
LOC: HO.HOSX 09:16
PROVIDERS: Visit Provider Physical Medicine & Rehabilitation
DX: M54.2 Cervicalgia (principal); G89.29 Other chronic pain; M79.18 Myalgia, other site
CPT/HCPCS: 72040

== ENCOUNTER → 2025-09-24 09:52 | Outpatient (BNV) | payer OTHER, SELFPAY | PROVIDERS: Visit Provider Radiology Diagnostic Radiology | DX: M47.812 Spondylosis without myelopathy or radiculopathy, cervical region (principal) | CPT/HCPCS: 72040 ==